=== PATIENT | male | born 1980 | race Caucasian/White ===

== ENCOUNTER 2016-04-25 13:42 | Emergency (ER) | payer MEDICARE, MEDICAID ==
[2016-04-25] MEDS ORDERED: oxyCOD/ACETAMIN 5 MG/325 MG TABLET PO STA (14:35)
[2016-04-25] MEDS ORDERED: CLINDAMYCIN 150 MG CAPSULE PO STA (14:35)
[2016-04-25] MEDS ORDERED: CLINDAMYCIN 150 MG CAPSULE PO ONE (14:40)
[2016-04-25] MEDS ORDERED: oxyCOD/ACETAMIN 5 MG/325 MG TABLET PO ONE (14:40)
== END 2016-04-25 14:46 | disposition home or self-care (01) ==
DX: K04.7 Periapical abscess without sinus (principal); K02.9 Dental caries, unspecified; F17.200 Nicotine dependence, unspecified, uncomplicated
CPT/HCPCS: 99283; A9270

== ENCOUNTER 2016-07-24 12:35 | Emergency (ER) | payer MEDICAID, MEDICARE ==
[2016-07-24] MEDS ORDERED: oxyCOD/ACETAMIN 5 MG/325 MG TABLET PO STA (12:43)
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
[2016-07-24] MEDS ORDERED: oxyCOD/ACETAMIN 5 MG/325 MG TABLET PO ONE (13:00)
--- NOTE | 2016-07-24 13:18 | XRAY Preliminary Report ---
Exam: XR Elbow 3 View LT IMPRESSION: Chronic appearing spurring of the elbow with hypertrophy of the coronoid process of the p roximal ulna. No acute fracture or subluxation. [facility] SITE ID: [id number]
--- NOTE | 2016-07-24 13:21 | XRAY Report ---
EXAM: LEFT ELBOW RADIOGRAPHY EXAM DATE: 07/24/2016 01:00 PM. CLINICAL HISTORY: Elbow inj. unable to straighten arm. COMPARISON: 09/23/2013. TECHNIQUE: 4 views. FINDINGS: Bones: There is chronic appearing hypertrophy and spurring of the coronoid process of the proximal ul na. There is mild to moderate spurring of the radial head. No cortical step off or acute fracture. Joints: No displaced posterior fat pad. Joint space appears preserved. Soft Tissues: Otherwise unremarkable. IMPRESSION: Chronic appearing spurring of the elbow with hypertrophy of the coronoid process of the p roximal ulna. No acute fracture or subluxation. [facility] Referring Provider Line: [phone] SITE ID: [id number]
[2016-07-24 13:34] VITALS: BP 117/70
== END 2016-07-24 13:34 | disposition home or self-care (01) ==
LOC: ED 12:35
DX: S53.402A Unspecified sprain of left elbow, initial encounter (principal); X50.0XXA Overexertion from strenuous movement or load, initial encounter; Y93.83 Activity, rough housing and horseplay; R03.0 Elevated blood-pressure reading, without diagnosis of hypertension
CPT/HCPCS: 73080; 99283; A9270

== ENCOUNTER 2016-10-16 12:35 | Emergency (ER) | payer MEDICARE ==
[2016-10-16 12:45] VITALS: BP 118/78
[2016-10-16] MEDS ORDERED: DEXAMETHASONE 10 MG/ML VIAL PO STA (13:09)
[2016-10-16] MEDS ORDERED: DEXAMETHASONE 10 MG/ML VIAL ONE (13:12)
--- NOTE | 2016-10-16 13:12 | ED Physician Documentation ---
PD HPI HEENT - Stated complaint Stated Complaint: RT EAR & TOOTH PX - Chief complaint Chief Complaint: Heent - History obtained from History obtained from: Patient - History of Present Illness Timing - onset: How many days ago (2) Timing - duration: Days (2) Timing - details: Gradual onset, Still present Location: Right ear, Tooth Improves: Medication Worsens: Swalllowing Associated symptoms: Congestion, Headache, Cough Similar symptoms before: Diagnosis (ear infection and a bad tooth) Recently seen: Not recently seen - Additional information Additional information: 36 y/o male has begun to have pain in a right tooth #6 and and this extends into the right zygomatic arch and to the right ear. He has a sensation of air coming out of the ear but not drainage. Review of Systems Constitutional: reports: Chills, Myalgias, Fatigue. denies: Fever Eyes: denies: Decreased vision Ears: reports: Ear pain Nose: reports: Rhinorrhea / runny nose, Congestion Throat: reports: Dental pain / toothache Cardiac: denies: Chest pain / pressure, Palpitations Respiratory: reports: Cough. denies: Dyspnea GI: denies: Abdominal Pain, Nausea, Vomiting : denies: Dysuria, Frequency PD PAST MEDICAL HISTORY - Past Medical History Past Medical History: Yes Cardiovascular: None Respiratory: None Neuro: None Endocrine/Autoimmune: None GI: None : None HEENT: None Psych: Depression Musculoskeletal: None Derm: None - Past Surgical History Past Surgical History: Yes Ortho: Other - Present Medications Home Medications: Ambulatory Orders Medication Instructions Recorded Confirmed Citalopram [CeleXA] 20 mg PO DAILY 01/30/16 10/16/16 Clindamycin HCl 300 mg PO QID #28 capsule 10/16/16 Oxycodone HCl/Acetaminophen 1 each PO Q6HR PRN #15 tablet 10/16/16 [Oxycodone-Acetaminophen 5-325] - Allergies Allergies/Adverse Reactions: Allergies Allergy/AdvReac Type Severity Reaction Status Date / Time amoxicillin [Amoxicillin] Allergy Severe Hives Verified 10/16/16 12:45 hydrocodone [Hydrocodone] AdvReac Headache Verified 10/16/16 12:45 - Social History Does the pt smoke?: Yes Smoking Status: Current every day smoker Does the pt drink ETOH?: No Does the pt have substance abuse?: No - Immunizations Immunizations are current?: Yes - POLST Patient has POLST: No PD ED PE NORMAL - Vitals Vital signs reviewed: Yes (normal ) - General General: Alert and oriented X 3, Well developed/nourished, Other (The patient appears to be in pain and moves slowly ) - HEENT HEENT: Atraumatic, PERRL, EOMI, Other (The right TM is mildly inflamed along the umbo and in the basement posteriorly. I am not able to see the anterior portion of the TM but the TM that is visible shows no evidence of rupture. ) - Neck Neck: Supple, no meningeal sign, No bony TTP - Cardiac Cardiac: RRR, No murmur - Respiratory Respiratory: No respiratory distress, Clear bilaterally - Abdomen Abdomen: Soft, Non tender - Derm Derm: Normal color, Warm and dry, No rash - Extremities Extremities: No deformity, No edema - Neuro Neuro: No motor deficit, No sensory deficit - Psych Psych: Normal mood, Normal affect PD ED PE EXPANDED - HEENT HEENT Visual: 1 - swelling, tenderness (tooth is missing) Results - Vitals Vitals: Vital Signs - 24 hr 10/16/16 12:43 Temperature 36.8 C Heart Rate 88 Respiratory 16 Rate Blood Pressure 118/78 O2 Saturation 100 Oxygen O2 Source Room air PD MEDICAL DECISION MAKING - ED course Complexity details: considered differential, d/w patient ED course: 36 y/o male with a bad tooth also has inflammation in the right ear. He is given decadron in the ED and we will put him on some clinda with this and use percocet for pain control. Departure - Departure Disposition: 01 Home, Self Care Clinical Impression: Dental abscess Otitis media Qualifiers: Otitis media type: suppurative Laterality: right Chronicity: acute Recurrence: not specified as recurrent Spontaneous tympanic membrane rupture: without spontaneous rupture Qualified Code(s): H66.001 - Acute suppurative otitis media without spontaneous rupture of ear drum, right ear Condition: Stable Instructions: ED Otitis Media Acute Adult, ED Tooth Pain Follow-Up: Tima Durant MD [Primary Care Provider] - Prescriptions: Oxycodone HCl/Acetaminophen [Oxycodone-Acetaminophen 5-325] 1 each PO Q6HR PRN # 15 tablet PRN Reason: Pain Clindamycin HCl 300 mg PO QID #28 capsule
[2016-10-16] MEDS ORDERED: CHERRY SYRUP 10 ML UDC PO ONE (13:13)
== END 2016-10-16 13:36 | disposition home or self-care (01) ==
LOC: ED 12:35
DX: K04.7 Periapical abscess without sinus (principal); H66.001 Acute suppurative otitis media without spontaneous rupture of ear drum, right ear; F17.200 Nicotine dependence, unspecified, uncomplicated
CPT/HCPCS: 99283; 99284; A9270

== ENCOUNTER 2016-11-14 08:48 | Emergency (ER) | payer MEDICARE ==
[2016-11-14 08:53] VITALS: BP 117/71
--- NOTE | 2016-11-14 09:21 | ED Physician Documentation ---
PD HPI UPPER EXT INJURY - Stated complaint Stated Complaint: LEFT HAND PX - Chief complaint Chief Complaint: Ext Problem - History obtained from History obtained from: Patient - History of Present Illness Location: Left, Wrist, Hand Type of injury: No: Fall, Blunt / blow, Puncture wound Where injury occurred: Home Timing - onset: How many days ago (2) Timing - duration: Days (2) Timing - details: Gradual onset, Still present (no noted trauma; wrist and hand started hurting and have gotten worse.) Improved by: Rest. No: Meds (tried Ibuprofen) Worsened by: Moving, Palpating Associated symptoms: No: Weakness, Numbness, Swelling Similar symptoms before: Has not had sx before Recently seen: Not recently seen Review of Systems Constitutional: denies: Fever, Chills Nose: denies: Rhinorrhea / runny nose, Congestion Throat: denies: Sore throat Respiratory: denies: Cough GI: denies: Nausea, Vomiting, Diarrhea Skin: denies: Rash, Lesions, Abrasion (s), Laceration (s) Neurologic: denies: Focal weakness, Numbness PD PAST MEDICAL HISTORY - Past Medical History Cardiovascular: None Respiratory: None Neuro: None Endocrine/Autoimmune: None GI: None : None HEENT: None Psych: Depression Musculoskeletal: None Derm: None - Past Surgical History Past Surgical History: Yes Ortho: Other - Present Medications Home Medications: Ambulatory Orders Medication Instructions Recorded Confirmed Citalopram [CeleXA] 20 mg PO DAILY 01/30/16 11/14/16 Dexamethasone [Decadron] 4 mg PO DAILY #5 tablet 11/14/16 Naproxen 375 mg PO BID #20 tablet 11/14/16 Oxycodone HCl/Acetaminophen 1 each PO Q6H PRN #15 tablet 11/14/16 [Percocet 5-325 mg Tablet] - Allergies Allergies/Adverse Reactions: Allergies Allergy/AdvReac Type Severity Reaction Status Date / Time amoxicillin [Amoxicillin] Allergy Severe Hives Verified 10/16/16 12:45 hydrocodone [Hydrocodone] AdvReac Headache Verified 10/16/16 12:45 - Social History Does the pt smoke?: Yes Smoking Status: Current every day smoker Does the pt drink ETOH?: No Does the pt have substance abuse?: No Substance Use and Type: Marijuana - Immunizations Immunizations are current?: Yes - POLST Patient has POLST: No PD ED PE NORMAL - Vitals Vital signs reviewed: Yes - General General: Alert and oriented X 3, Well developed/nourished, Other (anxious and appears in much pain. Holding the left hand and wrist very tensely, with fingers partly flexed closed. Normal color and cap refill. No edema in fingers. Normal sensation to touch and sharp. Wrist with some tenderness dorsally. Forearm without swelling, redness, nor tenderness. Wrist movement hurts. ) - Derm Derm: Normal color, Warm and dry, No rash - Extremities Extremities: No deformity, No edema - Neuro Neuro: No motor deficit, No sensory deficit - Psych Psych: Normal mood. No: Normal affect (slightly anxious.) Results - Vitals Vitals: Vital Signs - 24 hr 11/14/16 08:51 Temperature 36.0 C L Heart Rate 89 Respiratory 16 Rate Blood Pressure 117/71 O2 Saturation 100 Oxygen O2 Source Room air - Rads (name of study) left hand Radiology: Prelim report reviewed, EMP read contemporaneously (no fractures) PD MEDICAL DECISION MAKING - ED course Complexity details: considered differential (no mechanism for significant injury and no repetitive use recent. Pain seems excess for mechanism and without findings, such as swelling, crepitance of tendons/etc. He feels better with wrist splint. Presume tendonitis. Has good color, cap refill and no edema in fingers, so does not seem compartment pressure issue. ), d/w patient Departure - Departure Disposition: 01 Home, Self Care Clinical Impression: Left hand pain, Left hand tendonitis Condition: Stable Record reviewed to determine appropriate education?: Yes Follow-Up: Tima Durant MD [Primary Care Provider] - Prescriptions: Dexamethasone [Decadron] 4 mg PO DAILY #5 tablet Naproxen 375 mg PO BID #20 tablet Oxycodone HCl/Acetaminophen [Percocet 5-325 mg Tablet] 1 each PO Q6H PRN #15 tablet PRN Reason: Pain Comments: Wrist splint to help wrist/hand pain anyway and then less use of the hand to help with fingers hurting. Naproxen twice daily for a week, and Decadron daily for 5 days both for inflammation. Add Tylenol or Percocet for pain as needed. Recheck if not improved over the next 3-5 days. Discharge Date/Time: 11/14/16 10:00
--- NOTE | 2016-11-14 09:34 | XRAY Report ---
EXAM: LEFT HAND RADIOGRAPHY EXAM DATE: 11/14/2016 09:15 AM. CLINICAL HISTORY: Pain in left hand, denies trauma. COMPARISON: None. TECHNIQUE: 3 views. FINDINGS: Bones: No acute fracture or bony lesion. No bony erosions. Joints: Normal. No subluxations. Soft Tissues: No radiopaque foreign bodies. IMPRESSION: 1. No osseous abnormalities. [facility] Referring Provider Line: [phone] SITE ID: [id number]
[2016-11-14] MEDS ORDERED: DEXAMETHASONE 10 MG/ML VIAL PO STA (09:37)
[2016-11-14] MEDS ORDERED: oxyCOD/ACETAMIN 5 MG/325 MG TABLET PO STA (09:37)
[2016-11-14] MEDS ORDERED: oxyCOD/ACETAMIN 5 MG/325 MG TABLET PO ONE (09:39)
[2016-11-14] MEDS ORDERED: CHERRY SYRUP 10 ML UDC PO ONE (09:39)
[2016-11-14] MEDS ORDERED: DEXAMETHASONE 10 MG/ML VIAL ONE (09:40)
== END 2016-11-14 10:00 | disposition home or self-care (01) ==
LOC: ED 08:48
DX: M77.9 Enthesopathy, unspecified (principal); M25.532 Pain in left wrist; F17.200 Nicotine dependence, unspecified, uncomplicated
CPT/HCPCS: 73130; 99283; A9270

== ENCOUNTER 2017-01-18 13:19 | Emergency (ER) | payer MEDICARE ==
--- NOTE | 2017-01-18 13:54 | XRAY Preliminary Report ---
Exam: XR Finger(s) LT IMPRESSION: Mild soft tissue swelling. No acute fracture or dislocation identified. [facility] SITE ID: [id number]
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
[2017-01-18] MEDS ORDERED: oxyCOD/ACETAMIN 5 MG/325 MG TABLET PO STA (15:32)
[2017-01-18] MEDS ORDERED: NAPROXEN 250 MG TABLET PO STA (15:32)
[2017-01-18] MEDS ORDERED: NAPROXEN 250 MG TABLET PO ONE (15:38)
[2017-01-18] MEDS ORDERED: oxyCOD/ACETAMIN 5 MG/325 MG TABLET PO ONE (15:39)
[2017-01-18 15:51] VITALS: BP 123/82
== END 2017-01-18 15:48 | disposition home or self-care (01) ==
LOC: ED 13:19
DX: S63.635A Sprain of interphalangeal joint of left ring finger, initial encounter (principal); S63.259A Unspecified dislocation of unspecified finger, initial encounter; X50.1XXA Overexertion from prolonged static or awkward postures, initial encounter; Y93.75 Activity, martial arts
CPT/HCPCS: 73140; 99283; A9270

== ENCOUNTER 2017-01-30 13:23 | Emergency (ER) | payer MEDICARE ==
[2017-01-30 13:30] VITALS: BP 122/77
[2017-01-30] MEDS ORDERED: oxyCOD/ACETAMIN 5 MG/325 MG TABLET PO STA (13:56)
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
[2017-01-30] MEDS ORDERED: oxyCOD/ACETAMIN 5 MG/325 MG TABLET PO ONE (14:05)
--- NOTE | 2017-01-30 14:12 | XRAY Preliminary Report ---
Exam: XR Hand 3 View LT IMPRESSION: Normal hand radiography. [facility] SITE ID: [id number]
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
== END 2017-01-30 14:04 | disposition home or self-care (01) ==
LOC: ED 13:23
DX: S63.633A Sprain of interphalangeal joint of left middle finger, initial encounter (principal); S63.635A Sprain of interphalangeal joint of left ring finger, initial encounter; X50.1XXA Overexertion from prolonged static or awkward postures, initial encounter; F17.200 Nicotine dependence, unspecified, uncomplicated
CPT/HCPCS: 73130; 99283; A9270

== ENCOUNTER 2017-03-19 12:05 | Emergency (ER) | payer MEDICARE ==
[2017-03-19 14:15] VITALS: BP 131/80
--- NOTE | 2017-03-19 14:51 | ED Physician Documentation ---
History of Present Illness - Stated complaint Stated Complaint: TOOTH PAIN - Chief complaint Chief Complaint: Heent - History obtained from History obtained from: Patient (pt is here for concerns of tooth pain and infection. states that over the past couple days thae area where a tooth broke has been painful. has been taking NSAID's for this.) Review of Systems Constitutional: denies: Fever, Chills Ears: reports: Ear pain (right ear pain) Nose: denies: Congestion, Sinus pressure / pain Throat: reports: Dental pain / toothache. denies: Oral lesions / sores, Sore throat, Swollen tonsils Cardiac: denies: Chest pain / pressure Respiratory: denies: Cough GI: denies: Nausea, Vomiting Skin: denies: Rash, Lesions Musculoskeletal: denies: Neck pain PD PAST MEDICAL HISTORY - Past Medical History Cardiovascular: None Respiratory: None Neuro: None Endocrine/Autoimmune: None GI: None : None HEENT: None Psych: Depression Musculoskeletal: None Derm: None - Past Surgical History Past Surgical History: Yes Ortho: Other - Present Medications Home Medications: Ambulatory Orders Medication Instructions Recorded Confirmed Citalopram [CeleXA] 20 mg PO DAILY 01/30/16 01/30/17 Alprazolam [Alprazolam Odt] 1 mg PO DAILY PRN 01/18/17 01/30/17 Clindamycin HCl [Clindamycin 300MG 300 mg PO TID #30 capsule 03/19/17 CAP] HYDROcod/ACETAM 5/325 [[place] 5/325] 1 each PO Q6H #10 tablet 03/19/17 - Allergies Allergies/Adverse Reactions: Allergies Allergy/AdvReac Type Severity Reaction Status Date / Time amoxicillin [Amoxicillin] Allergy Severe Hives Verified 01/18/17 13:25 hydrocodone [Hydrocodone] AdvReac Headache Verified 01/18/17 13:25 tramadol AdvReac Headache Verified 01/18/17 13:54 - Social History Does the pt smoke?: Yes Smoking Status: Current every day smoker Does the pt drink ETOH?: No Does the pt have substance abuse?: No - Immunizations Immunizations are current?: Yes - POLST Patient has POLST: No PD ED PE NORMAL - Vitals Vital signs reviewed: Yes - General General: Alert and oriented X 3, Well developed/nourished - HEENT HEENT: Atraumatic, PERRL, Ears normal, Moist mucous membranes, Pharynx benign. No: Dentition benign (pt with multiple dental caries and missing right tooth 7) - Cardiac Cardiac: RRR, No murmur - Respiratory Respiratory: No respiratory distress Results - Vitals Vitals: Vital Signs - 24 hr 03/19/17 03/19/17 12:09 14:13 Temperature 36.4 C L 3.1 C L Heart Rate 84 107 H Respiratory 16 18 Rate Blood Pressure 124/60 131/80 H O2 Saturation 100 97 Oxygen O2 Source Room air PD MEDICAL DECISION MAKING - ED course Complexity details: d/w patient ED course: pt iwth missing right tooth #7 with dentin exposed. no signs of an abscess that can be drained. Ca hydroxide paste was placed over the area. will send home with abd and pain meds and he was instructed to followup with a dentist on tuesday . Departure - Departure Disposition: Home, Self Care Clinical Impression: Tooth avulsion, Dental caries Condition: Good Instructions: Dental Abscess, Decay Tooth Prescriptions: Clindamycin HCl [Clindamycin 300MG CAP] 300 mg PO TID #30 capsule HYDROcod/ACETAM 5/325 [[place] 5/325] 1 each PO Q6H #10 tablet Comments: You need to follow up with a dentist on tuesday. Take all of your medications as instructed.
== END 2017-03-19 15:07 | disposition home or self-care (01) ==
LOC: ED 12:05
DX: S03.2XXA Dislocation of tooth, initial encounter (principal); X58.XXXA Exposure to other specified factors, initial encounter; K02.9 Dental caries, unspecified; F17.200 Nicotine dependence, unspecified, uncomplicated
CPT/HCPCS: 99283

== ENCOUNTER 2017-04-28 13:58 | Emergency (ER) | payer MEDICARE ==
[2017-04-28 14:15] VITALS: BP 127/76
[2017-04-28] MEDS ORDERED: IBUPROFEN 400 MG TABLET PO STA (14:26)
--- NOTE | 2017-04-28 15:08 | ED Physician Documentation ---
History of Present Illness - Stated complaint Stated Complaint: LEFT HAND PX - Chief complaint Chief Complaint: Ext Problem - Additonal information Additional information: pt injured his 3rd and 4th PIP L hand in Jan seen in ED for same neg xrays felt to have possibly dislocated then relocated given mechanism of twisting still hurt Review of Systems Musculoskeletal: reports: Extremity pain PD PAST MEDICAL HISTORY - Past Medical History Cardiovascular: None Respiratory: None Neuro: None Endocrine/Autoimmune: None GI: None : None HEENT: None Psych: Depression Musculoskeletal: None Derm: None - Past Surgical History Past Surgical History: Yes Ortho: Other - Present Medications Home Medications: Ambulatory Orders Medication Instructions Recorded Confirmed Citalopram [CeleXA] 20 mg PO DAILY 01/30/16 04/28/17 Alprazolam [Alprazolam Odt] 1 mg PO DAILY PRN 01/18/17 04/28/17 Gluc Begum Dipo Ch/Chinedu Begum/C/Antolin 1 each PO DAILY PRN #30 capsule 04/28/17 [Glucosamine-Chondroitin Capsul] Indomethacin [Indocin] 25 mg PO BIDWM PRN #20 capsule 04/28/17 - Allergies Allergies/Adverse Reactions: Allergies Allergy/AdvReac Type Severity Reaction Status Date / Time amoxicillin [Amoxicillin] Allergy Severe Hives Verified 04/28/17 14:15 hydrocodone [Hydrocodone] AdvReac Headache Verified 04/28/17 14:15 tramadol AdvReac Headache Verified 04/28/17 14:15 - Social History Does the pt smoke?: Yes Smoking Status: Current every day smoker Does the pt drink ETOH?: No Does the pt have substance abuse?: No - Immunizations Immunizations are current?: Yes - POLST Patient has POLST: No PD ED PE NORMAL - Vitals Vital signs reviewed: Yes - Extremities Extremities: Other (L hand 3rd and 4th PIP are swollen and there is some palpable crepitus with ROM but no redness or warmth, nl cascade, MSV intact, able to fully flex and ext) Results - Vitals Vitals: Vital Signs - 24 hr 04/28/17 14:11 Temperature 37.4 C Heart Rate 89 Respiratory 16 Rate Blood Pressure 127/76 O2 Saturation 100 Oxygen O2 Source Room air - Rads (name of study) hand Radiology: See rad report (STS no fx dislocation or sublux) Departure - Departure Disposition: 01 Home, Self Care Clinical Impression: Finger pain, left Follow-Up: [facility] [Provider Group] Prescriptions: Gluc Begum Dipo Ch/Chinedu Begum/C/Antolin [Glucosamine-Chondroitin Capsul] 1 each PO DAILY PRN #30 capsule PRN Reason: Joint Pain Indomethacin [Indocin] 25 mg PO BIDWM PRN #20 capsule PRN Reason: Joint Pain Comments: I am concerned you may have developed some arthritis or chronic inflammation from your prior injury to the fingers. I would like you to try a course of a strong anti-inflammatory called indocin and also to try a joint supplement called glucosamine-chondroitin. If that does not help I have also referred you to orthpedics and you can call to make an appointment with them
--- NOTE | 2017-04-28 15:19 | XRAY Report ---
EXAM: LEFT HAND RADIOGRAPHY EXAM DATE: 04/28/2017 02:44 PM. CLINICAL HISTORY: Trauma, third and fourth PIP pain. COMPARISON: 01/30/2017. TECHNIQUE: 3 views. FINDINGS: Bones: No definite fracture or other bone lesion. Joints: Normal. No subluxations. Soft Tissues: Mild soft tissue swelling over third and fourth PIP joints. IMPRESSION: Soft tissue swelling. [facility] Referring Provider Line: [phone] SITE ID: [id number]
== END 2017-04-28 16:41 | disposition home or self-care (01) ==
LOC: ED 13:58
DX: M79.642 Pain in left hand (principal); F17.200 Nicotine dependence, unspecified, uncomplicated
CPT/HCPCS: 73130; 99283; A9270

== ENCOUNTER 2017-06-18 12:16 | Emergency (ER) | payer MEDICARE ==
[2017-06-18 12:27] VITALS: BP 110/90
[2017-06-18] MEDS ORDERED: oxyCOD/ACETAMIN 5 MG/325 MG TABLET PO STA (12:53)
--- NOTE | 2017-06-18 12:54 | ED Physician Documentation ---
PD HPI HEENT - Stated complaint Stated Complaint: R SIDE FACE/TOOTH PX - Chief complaint Chief Complaint: Heent - History obtained from History obtained from: Patient - History of Present Illness Timing - onset: Other (Eating chips last night and broke a tooth on the right maxilla, or molar. He has severe pain there. No facial swelling or fevers.) Review of Systems Constitutional: reports: Reviewed and negative Nose: reports: Reviewed and negative Throat: reports: Dental pain / toothache Cardiac: denies: Chest pain / pressure PD PAST MEDICAL HISTORY - Past Medical History Cardiovascular: None Respiratory: None Neuro: None Endocrine/Autoimmune: None GI: None : None HEENT: None Psych: Depression Musculoskeletal: None Derm: None - Past Surgical History Past Surgical History: Yes Ortho: Other - Present Medications Home Medications: Ambulatory Orders Medication Instructions Recorded Confirmed Clindamycin [Cleocin] 300 mg PO Q6H 10 Days capsule 06/18/17 Ibuprofen [Motrin] 800 mg PO Q8H PRN #30 tablet 06/18/17 Oxycodone HCl/Acetaminophen 1 - 2 tab PO Q4H PRN #7 tablet 06/18/17 [Percocet 5-325 mg Tablet] - Allergies Allergies/Adverse Reactions: Allergies Allergy/AdvReac Type Severity Reaction Status Date / Time amoxicillin [Amoxicillin] Allergy Severe Hives Verified 04/28/17 14:15 hydrocodone [Hydrocodone] AdvReac Headache Verified 04/28/17 14:15 tramadol AdvReac Headache Verified 04/28/17 14:15 - Social History Does the pt smoke?: Yes Smoking Status: Current every day smoker Does the pt drink ETOH?: No Does the pt have substance abuse?: No - Immunizations Immunizations are current?: Yes - POLST Patient has POLST: No PD ED PE NORMAL - Vitals Vital signs reviewed: Yes - General General: Alert and oriented X 3, No acute distress - HEENT HEENT: Other (Missing a fair number of teeth and a lot of fillings, there is a filling in the right maxillary molar that looks like it is broken and quite tender but no overlying facial swelling or trismus.) - Neck Neck: Supple, no meningeal sign, No bony TTP - Neuro Neuro: Alert and oriented X 3 - Psych Psych: Normal mood, Normal affect Results - Vitals Vitals: Vital Signs - 24 hr 06/18/17 12:25 Temperature 37.1 C Heart Rate 75 Respiratory 15 Rate Blood Pressure 110/90 H O2 Saturation 100 Oxygen O2 Source Room air Departure - Departure Disposition: 01 Home, Self Care Clinical Impression: Pain due to dental caries Condition: Good Record reviewed to determine appropriate education?: Yes Instructions: ED Tooth Pain Prescriptions: Clindamycin [Cleocin] 300 mg PO Q6H 10 Days capsule Ibuprofen [Motrin] 800 mg PO Q8H PRN #30 tablet PRN Reason: PAIN &/OR FEVER Oxycodone HCl/Acetaminophen [Percocet 5-325 mg Tablet] 1 - 2 tab PO Q4H PRN #7 tablet PRN Reason: Pain Comments: It is very important that she follow-up with a dentist. When it comes to dental problems like yours, the emergency department can only offer a short- term solution to your long-term problem. A couple of low cost options for dental care include: [facility] in [place], calls [phone] for an appointment Or [facility] in [place], call [phone] for an appointment. Do not drink or drive while taking narcotic pain medication. Note that many narcotic pain relievers also contain Tylenol/acetaminophen. Please ensure that your total dose of acetaminophen from all sources does not exceed 3 g (3000 mg) per day. You may get constipated while on this medication. Take a stool softener such as Colace twice a day while you are on it. Also add an [id number] laxative such as senna or MiraLAX on any day that you do not have a bowel movement. If you received a narcotic pain medication or sedative while in the emergency department, do not drive for the next 24 hours.
== END 2017-06-18 13:13 | disposition home or self-care (01) ==
LOC: ED 12:16
DX: K02.9 Dental caries, unspecified (principal); F17.200 Nicotine dependence, unspecified, uncomplicated
CPT/HCPCS: 99283; A9270

== ENCOUNTER 2017-09-02 12:29 | Emergency (ER) | payer MEDICARE ==
[2017-09-02 13:39] VITALS: BP 114/80
--- NOTE | 2017-09-02 13:39 | ED Physician Documentation ---
PD HPI HEENT - Stated complaint Stated Complaint: TOOTH PX - Chief complaint Chief Complaint: Heent - History obtained from History obtained from: Patient - History of Present Illness Timing - onset: Today Location: Tooth - Additional information Additional information: right upper toothache. He reports that a decayed molar broke this morning while he was eating, and he has had pain in the tooth since that time. He denies sore throat or difficulty swallowing. He denies facial swelling. Review of his medical record reveals an almost identical presentation here 3 months ago. Review of Systems Constitutional: denies: Fever Eyes: denies: Irritation Ears: denies: Ear pain Nose: denies: Congestion Throat: reports: Dental pain / toothache. denies: Sore throat Respiratory: denies: Dyspnea, Cough Skin: denies: Rash Neurologic: denies: Headache PD PAST MEDICAL HISTORY - Past Medical History Past Medical History: Yes Cardiovascular: None Respiratory: None Endocrine/Autoimmune: None GI: None : None HEENT: None Psych: Depression Musculoskeletal: None Derm: None - Past Surgical History Past Surgical History: Yes Ortho: Other - Present Medications Home Medications: Ambulatory Orders Medication Instructions Recorded Confirmed Clindamycin [Cleocin] 150 mg PO Q6H 7 Days #28 capsule 09/02/17 oxyCODONE/ACET 5/325 [Percocet 5 1 tab PO Q4-6H PRN #7 tablet 09/02/17 mg/325 mg] - Allergies Allergies/Adverse Reactions: Allergies Allergy/AdvReac Type Severity Reaction Status Date / Time amoxicillin [Amoxicillin] Allergy Severe Hives Verified 09/02/17 12:35 hydrocodone [Hydrocodone] AdvReac Headache Verified 09/02/17 12:35 tramadol AdvReac Headache Verified 09/02/17 12:35 - Social History Does the pt smoke?: Yes Smoking Status: Current every day smoker Does the pt drink ETOH?: No Does the pt have substance abuse?: No - Immunizations Immunizations are current?: Yes - POLST Patient has POLST: No PD ED PE NORMAL - Vitals Vital signs reviewed: Yes (normal) - General General: Alert and oriented X 3, Well developed/nourished - HEENT HEENT: Atraumatic, EOMI, Ears normal, Pharynx benign, Other (Several of his teeth have been previously extracted. Several of his remaining teeth have decay and fillings. There is tenderness to palpation of his one remaining right upper, which has a filling in it. There is no gingival swelling, and no facial swelling.) - Neck Neck: Supple, no meningeal sign, No adenopathy - Cardiac Cardiac: RRR - Respiratory Respiratory: No respiratory distress - Derm Derm: No rash - Neuro Neuro: Alert and oriented X 3, Normal speech Results - Vitals Vitals: Oxygen O2 Source Room air PD MEDICAL DECISION MAKING - ED course Complexity details: reviewed old records, considered differential, d/w patient ED course: The patient's presentation is significant for dental pain with numerous dental caries. There is no evidence of abscess. He is being discharged with prescription for clindamycin, and for Percocet, 7 tablets. I discussed with him the importance of following up with a dentist, as well as potentially worrisome signs or symptoms that should prompt reevaluation in the emergency department. Departure - Departure Disposition: 01 Home, Self Care Clinical Impression: Pain, dental Condition: Stable Instructions: ED Tooth Pain Follow-Up: Tima Durant MD [Primary Care Provider] - Prescriptions: Clindamycin [Cleocin] 150 mg PO Q6H 7 Days #28 capsule oxyCODONE/ACET 5/325 [Percocet 5 mg/325 mg] 1 tab PO Q4-6H PRN #7 tablet PRN Reason: Pain Comments: Take clindamycin 4 times daily as prescribed. You can use Percocet as prescribed if needed for pain. You can also use ibuprofen up to 800 mg 3 times daily for its anti-inflammatory effect. Follow up with a dentist as soon as possible. Call to schedule appointment. Return to the emergency department if you develop markedly increasing pain, facial swelling, or otherwise worsening symptoms. Discharge Date/Time: 09/02/17 13:46
== END 2017-09-02 13:46 | disposition home or self-care (01) ==
LOC: ED 12:29
DX: K08.89 Other specified disorders of teeth and supporting structures (principal); K02.9 Dental caries, unspecified; F17.200 Nicotine dependence, unspecified, uncomplicated
CPT/HCPCS: 99283

== ENCOUNTER 2017-10-07 09:06 | Emergency (ER) | payer MEDICARE ==
--- NOTE | 2017-10-07 10:03 | ED Physician Documentation ---
PD HPI LOWER EXT INJURY - Stated complaint Stated Complaint: R KNEE INJURY - Chief complaint Chief Complaint: General - History obtained from History obtained from: Patient - History of Present Illness PD HPI LOW EXT INJURY LOCATION: Right, Knee Type of injury: Blunt / blow Where injury occurred: Other (martial arts studio) Timing - onset: Last night Worsened by: Moving, Palpating Associated symptoms: No: Weakness, Numbness, Swelling Similar symptoms before: Has not had sx before - Additional information Additional information: The patient is a 37-year-old male who presents with right knee pain. He was performing martial arts last night when another student impacted the lateral aspect of his right knee, causing medial motion of the knee. He reports pain at the medial aspect of the knee since that time, with impaired ability to flex or extend the knee. He denies any other injuries. He denies any previous history of right knee injury. Review of Systems Constitutional: denies: Fever Skin: denies: Rash, Abrasion (s) Musculoskeletal: reports: Joint pain (Right knee). denies: Back pain, Joint swelling Neurologic: denies: Focal weakness, Numbness PD PAST MEDICAL HISTORY - Past Medical History Past Medical History: Yes Cardiovascular: None Respiratory: None Endocrine/Autoimmune: None GI: None : None HEENT: None Psych: Depression Musculoskeletal: None Derm: None - Past Surgical History Past Surgical History: Yes Ortho: Other - Present Medications Home Medications: Ambulatory Orders Medication Instructions Recorded Confirmed Citalopram [CeleXA] 20 mg PO DAILY 10/07/17 10/07/17 - Allergies Allergies/Adverse Reactions: Allergies Allergy/AdvReac Type Severity Reaction Status Date / Time amoxicillin [Amoxicillin] Allergy Severe Hives Verified 09/02/17 12:35 hydrocodone [Hydrocodone] AdvReac Headache Verified 09/02/17 12:35 tramadol AdvReac Headache Verified 10/07/17 09:14 - Social History Does the pt smoke?: Yes Smoking Status: Current every day smoker Does the pt drink ETOH?: No Does the pt have substance abuse?: No - Immunizations Immunizations are current?: Yes - POLST Patient has POLST: No PD ED PE NORMAL - Vitals Vital signs reviewed: Yes (normal) - General General: Alert and oriented X 3, Well developed/nourished, Other (Multiple tattoos.) - HEENT HEENT: Atraumatic - Respiratory Respiratory: No respiratory distress - Derm Derm: No rash - Extremities Extremities: No edema, No calf tenderness / cord, Other (There is tenderness to palpation along the medial joint line of the right knee. No tenderness along the lateral joint line or the popliteal fossa. He has limited range of motion of the knee secondary to pain. There is no warmth or erythema. There is no ligamentous instability detected. Distal neurovascular is intact.) - Neuro Neuro: Alert and oriented X 3, No motor deficit, No sensory deficit Results - Vitals Vitals: Vital Signs - 24 hr 10/07/17 10/07/17 09:11 11:03 Temperature 36.6 C 36.5 C Heart Rate 79 69 Respiratory 16 18 Rate Blood Pressure 112/86 H 116/71 O2 Saturation 100 96 Oxygen O2 Source Room air - Rads (name of study) Right knee Radiology: Prelim report reviewed, EMP read contemporaneously, See rad report ( No fracture, joint effusion, or acute findings.) PD MEDICAL DECISION MAKING - ED course Complexity details: reviewed results, re-evaluated patient, considered differential, d/w patient ED course: The patient's presentation is most consistent with strain versus tear of the medial collateral ligament of the right knee. His examination does not suggest ACL or PCL tear, and his x-ray reveals no acute osseous abnormality or joint effusion. Treatment in the emergency department included application of a knee immobilizer. I discussed with him the expected course of injury, symptomatic treatment and outpatient follow-up, as well as potentially worrisome signs or symptoms that should prompt reevaluation in the emergency department. - Sepsis Event Vital Signs: Vital Signs - 24 hr 10/07/17 10/07/17 09:11 11:03 Temperature 36.6 C 36.5 C Heart Rate 79 69 Respiratory 16 18 Rate Blood Pressure 112/86 H 116/71 O2 Saturation 100 96 Oxygen O2 Source Room air Departure - Departure Disposition: 01 Home, Self Care Clinical Impression: Medial collateral ligament sprain of knee Qualifiers: Encounter type: initial encounter Laterality: right Qualified Code(s): S83.411A - Sprain of medial collateral ligament of right knee, initial encounter Condition: Stable Instructions: ED Sprain Knee Collateral Ligaments Follow-Up: Tima Durant MD [Primary Care Provider] - Comments: Keep your right leg elevated as much the time as possible. Apply ice pack intermittently for the next 3 or 4 days. Use the knee immobilizer if it provides comfort. You can use ibuprofen, up to 800 mg 3 times daily for its anti-inflammatory effect. Follow up with your primary physician within 2 weeks. Call to schedule appointment. Return to the emergency department if you develop markedly increasing pain, swelling, or otherwise worsening symptoms. Discharge Date/Time: 10/07/17 11:04
--- NOTE | 2017-10-07 10:45 | XRAY Report ---
Procedure Date: 10/07/2017 Accession Number: [id number] / [id number] Procedure: XR - Knee 3 View RT CPT Code: FULL RESULT: EXAM: RIGHT KNEE RADIOGRAPHY EXAM DATE: 10/07/2017 09:54 AM. CLINICAL HISTORY: Right knee inversion injury wrestling yesterday. Medial knee pain. COMPARISON: 05/13/2007. TECHNIQUE: 4 views. FINDINGS: Bones: No fracture or bone lesion. Joints: No subluxation or joint effusion. Joint spaces are preserved. Soft Tissues: No significant findings identified. IMPRESSION: 1. No fracture, joint effusion, or acute findings identified. [facility]
[2017-10-07 11:04] VITALS: BP 116/71
== END 2017-10-07 11:04 | disposition home or self-care (01) ==
LOC: ED 09:06
DX: S83.411A Sprain of medial collateral ligament of right knee, initial encounter (principal); W50.0XXA Accidental hit or strike by another person, initial encounter; Y93.75 Activity, martial arts; Y92.89 Other specified places as the place of occurrence of the external cause; F17.200 Nicotine dependence, unspecified, uncomplicated
CPT/HCPCS: 29530; 99282; 99283

== ENCOUNTER 2017-11-02 11:51 | Outpatient (CLI) | payer OTHER, MEDICARE ==
--- NOTE | 2017-11-02 12:28 | XRAY Report ---
Procedure Date: 11/02/2017 Accession Number: [id number] / [id number] Procedure: XR - Elbow 3 View LT CPT Code: FULL RESULT: EXAM: Elbow 3 View LT DATE: 11/02/2017 12:03 PM CLINICAL HISTORY: ELBOW PAIN, HAND PAIN COMPARISON: 07/24/2016 TECHNIQUE: 3 views. FINDINGS: Bones: Normal. No fractures or bone lesions. Joints: Stable mild degenerative changes. No effusion. Soft Tissues: Normal. No soft tissue swelling. IMPRESSION: Stable mild degenerative changes. [facility]
--- NOTE | 2017-11-02 12:30 | XRAY Report ---
Procedure Date: 11/02/2017 Accession Number: [id number] / [id number] Procedure: XR - Hand 3 View LT CPT Code: FULL RESULT: EXAM: Hand 3 View LT DATE: 11/02/2017 12:03 PM CLINICAL HISTORY: ELBOW PAIN, HAND PAIN COMPARISON: 04/28/2017 TECHNIQUE: 3 views. FINDINGS: Bones: Normal. No fractures or bone lesions. Joints: Normal. No subluxations. Soft Tissues: Normal. No soft tissue swelling. IMPRESSION: Normal hand radiography. [facility]
== END 2017-11-02 11:52 | disposition home or self-care (01) ==
LOC: DI 11:51
DX: M19.022 Primary osteoarthritis, left elbow (principal); M25.641 Stiffness of right hand, not elsewhere classified

== ENCOUNTER 2017-12-08 21:42 | Emergency (ER) | payer MEDICARE, OTHER ==
[2017-12-08] MEDS ORDERED: oxyCODONE 5 MG TABLET PO STA (22:02)
[2017-12-08] MEDS ORDERED: oxyCODONE/ACET 5/325 Prepack 4 PO STA (22:02)
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
[2017-12-08 23:00] VITALS: BP 110/71
== END 2017-12-08 23:00 | disposition home or self-care (01) ==
LOC: ED 21:42
DX: S20.411A Abrasion of right back wall of thorax, initial encounter (principal); S20.412A Abrasion of left back wall of thorax, initial encounter; S20.229A Contusion of unspecified back wall of thorax, initial encounter; S20.211A Contusion of right front wall of thorax, initial encounter; W17.89XA Other fall from one level to another, initial encounter; W22.09XA Striking against other stationary object, initial encounter; Y92.812 Truck as the place of occurrence of the external cause
CPT/HCPCS: 71111; 72070; 99283; A9270

== ENCOUNTER 2018-01-21 12:18 | Emergency (ER) | payer MEDICARE, OTHER ==
[2018-01-21 12:28] VITALS: BP 122/65
[2018-01-21] MEDS ORDERED: DEXAMETHASONE 10 MG/ML VIAL PO STA (13:34)
--- NOTE | 2018-01-21 13:37 | ED Physician Documentation ---
PD HPI BACK PAIN - Stated complaint Stated Complaint: BACK PX - Chief complaint Chief Complaint: Back Pain - History obtained from History obtained from: Patient - History of Present Illness Timing - onset: How many days ago (2) Timing - duration: Days (2) Timing - details: Gradual onset, Still present Location: Mid, Lower Quality: Pain, Spasm, Sharp, Similar to prior episodes Associated symptoms: No: Fever, Weakness, Numbness, Incontinent of urine, Unable to urinate, Hematuria, Incontinent of stool Improves with: Rest, Position Worsened by: Movement, Lifting, Twisting, Palpation Contributing factors: Other (mowed the lawn 2 days ago) Similar symptoms before: Has not had sx before (lumbar contusion) Recently seen: Emergency Dept - Additional information Additional information: 38-year-old male who is on disability fell out of the back of a truck last month onto his back. He has had pain in this area of his back since and he was seen here in the emergency department and evaluated. He has continued to have pain was somewhat better and this week he went out to mow the lawn. He states that he did not seem to have too much pain when he did that but the pain is worse now over the last 2 days and now he is barely able to move. He states he has been getting into a hot bath for pain relief. Review of Systems Constitutional: denies: Fever Ears: denies: Ear pain Nose: denies: Congestion Throat: denies: Sore throat Cardiac: denies: Chest pain / pressure Respiratory: denies: Dyspnea, Cough GI: denies: Abdominal Pain, Nausea, Vomiting, Constipation, Diarrhea : denies: Dysuria, Frequency Musculoskeletal: reports: Back pain. denies: Neck pain, Extremity pain Neurologic: denies: Generalized weakness, Focal weakness, Numbness PD PAST MEDICAL HISTORY - Past Medical History Past Medical History: Yes Cardiovascular: None Respiratory: None Endocrine/Autoimmune: None GI: None : None HEENT: None Psych: Depression Musculoskeletal: None Derm: None - Past Surgical History Past Surgical History: Yes Ortho: Other - Present Medications Home Medications: Ambulatory Orders Medication Instructions Recorded Confirmed Citalopram [CeleXA] 20 mg PO DAILY 10/07/17 12/08/17 ALPRAZolam [Alprazolam] 0.5 mg PO ONCE PRN 01/21/18 01/21/18 Cyclobenzaprine [Flexeril] 10 mg PO TID PRN #20 tablet 01/21/18 oxyCODONE/ACET 5/325 [Percocet 5 1 - 2 each PO Q6H PRN #15 tablet 01/21/18 mg/325 mg] - Allergies Allergies/Adverse Reactions: Allergies Allergy/AdvReac Type Severity Reaction Status Date / Time amoxicillin [Amoxicillin] Allergy Severe Hives Verified 01/21/18 12:28 hydrocodone [Hydrocodone] AdvReac Headache Verified 01/21/18 12:28 tramadol AdvReac Headache Verified 01/21/18 12:28 - Social History Does the pt smoke?: Yes Smoking Status: Current every day smoker Does the pt drink ETOH?: No Does the pt have substance abuse?: No - Immunizations Immunizations are current?: Yes - POLST Patient has POLST: No PD ED PE NORMAL - Vitals Vital signs reviewed: Yes (normal ) - General General: Alert and oriented X 3, Well developed/nourished, Other (moves slowly and appears to be in pain ) - HEENT HEENT: Atraumatic, PERRL, EOMI - Neck Neck: Supple, no meningeal sign, No bony TTP - Cardiac Cardiac: RRR, No murmur - Respiratory Respiratory: No respiratory distress, Clear bilaterally - Back Back: No CVA TTP, No spinal TTP, Other (There is dense paraspinous muscle spasm along the spine from the mid lumbar to the mid thoracic spine. 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 He is administered dexamethasone 10 mg orally and we will place him back on some pain medication and muscle relaxant. I have indicated the patient he should avoid using the heating pack. - Sepsis Event Vital Signs: Vital Signs - 24 hr 01/21/18 12:26 Temperature 37 C Heart Rate 94 Respiratory 19 Rate Blood Pressure 122/65 O2 Saturation 98 Oxygen O2 Source Room air Departure - Departure Disposition: 01 Home, Self Care Clinical Impression: Spasm of back muscles Condition: Stable Instructions: ED Spasm Back No Trauma Follow-Up: Tima Durant MD [Primary Care Provider] - Prescriptions: Cyclobenzaprine [Flexeril] 10 mg PO TID PRN #20 tablet PRN Reason: Spasms oxyCODONE/ACET 5/325 [Percocet 5 mg/325 mg] 1 - 2 each PO Q6H PRN #15 tablet PRN Reason: Pain
[2018-01-21] MEDS ORDERED: CHERRY SYRUP 10 ML UDC PO ONE (13:38)
== END 2018-01-21 13:56 | disposition home or self-care (01) ==
LOC: ED 12:18
DX: M62.830 Muscle spasm of back (principal); F17.200 Nicotine dependence, unspecified, uncomplicated
CPT/HCPCS: 99283; A9270

== ENCOUNTER 2018-01-25 11:11 | Emergency (ER) | payer MEDICARE ==
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
[2018-01-25] MEDS ORDERED: oxyCODONE 5 MG TABLET PO STA (12:28)
[2018-01-25] MEDS ORDERED: NAPROXEN 250 MG TABLET PO STA (12:28)
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
[2018-01-25 13:46] VITALS: BP 116/61
== END 2018-01-25 13:57 | disposition home or self-care (01) ==
LOC: ED 11:11
DX: S16.1XXA Strain of muscle, fascia and tendon at neck level, initial encounter (principal); S51.822A Laceration with foreign body of left forearm, initial encounter; V59.9XXA Occupant (driver) (passenger) of pick-up truck or van injured in unspecified traffic accident, initial encounter; F17.200 Nicotine dependence, unspecified, uncomplicated
CPT/HCPCS: 73090; 99283; A9270

== ENCOUNTER 2018-07-18 12:40 | Emergency (ER) | payer MEDICARE ==
[2018-07-18] MEDS ORDERED: oxyCODONE 5 MG TABLET PO STA (16:05)
--- NOTE | 2018-07-18 16:08 | ED Physician Documentation ---
PD HPI HEENT - Stated complaint Stated Complaint: R EAR PAIN - Chief complaint Chief Complaint: Heent - History obtained from History obtained from: Patient - History of Present Illness Timing - onset: How many days ago (5) Timing - duration: Days (5) Timing - details: Gradual onset, Still present Location: Right ear, Tooth Improves: Medication Worsens: Everything Associated symptoms: Headache. No: Fever, Congestion, Cough Similar symptoms before: Diagnosis (bad tooth) Recently seen: Not recently seen - Additional information Additional information: 38-year-old male with poor dentition is come into the emergency department today with a broken right upper molar that has begin to cause him severe pain to his whole right face. He feels the pain into his ear and behind his eye up into his forehead and his entire jaw. He has vomited twice because of the severity of the pain. He has sensitivity to hot and cold and anything that touches the broken area hurts extremely Review of Systems Constitutional: denies: Fever Eyes: denies: Decreased vision Ears: reports: Ear pain Nose: reports: Congestion. denies: Rhinorrhea / runny nose Throat: reports: Dental pain / toothache Cardiac: denies: Chest pain / pressure Respiratory: denies: Dyspnea, Cough GI: reports: Vomiting PD PAST MEDICAL HISTORY - Past Medical History Past Medical History: Yes Cardiovascular: None Respiratory: None Neuro: None Endocrine/Autoimmune: None GI: None : None HEENT: None Psych: Depression Musculoskeletal: None Derm: None - Past Surgical History Past Surgical History: Yes Ortho: Other - Present Medications Home Medications: Ambulatory Orders Medication Instructions Recorded Confirmed Citalopram [CeleXA] 20 mg PO DAILY 10/07/17 07/18/18 Amoxicillin 875 mg PO BID #14 tablet 07/18/18 Oxycodone HCl/Acetaminophen 1 - 2 each PO Q6H PRN #14 tablet 07/18/18 [Percocet 5-325 mg Tablet] - Allergies Allergies/Adverse Reactions: Allergies Allergy/AdvReac Type Severity Reaction Status Date / Time amoxicillin [Amoxicillin] Allergy Severe Hives Verified 07/18/18 15:48 hydrocodone [Hydrocodone] AdvReac Headache Verified 07/18/18 15:48 tramadol AdvReac Headache Verified 07/18/18 15:48 - Social History Does the pt smoke?: No Smoking Status: Former smoker Does the pt drink ETOH?: No Does the pt have substance abuse?: No - Immunizations Immunizations are current?: Yes - POLST Patient has POLST: No PD ED PE NORMAL - Vitals Vital signs reviewed: Yes (hypertensive ) - General General: Alert and oriented X 3, Well developed/nourished, Other (appears to be in pain with tears, senior chemist tone and flat affect. ) - HEENT HEENT: Atraumatic, PERRL, EOMI, Ears normal, Other (there are multiple teeth missing and the most posterior molar on the right upper is broken in the back and has a hole in it that is tender and is not draining. 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 It is placed over the defect in the tooth and the patient is administered oxycodone [address] will [address] him on some amoxicillin and he states that he is able to take the amoxicillin due to his penicillin that he is allergic to. Departure - Departure Disposition: 01 Home, Self Care Clinical Impression: Pain, dental Condition: Stable Instructions: ED Tooth Pain Follow-Up: Tima Durant MD [Primary Care Provider] - Prescriptions: Amoxicillin 875 mg PO BID #14 tablet Oxycodone HCl/Acetaminophen [Percocet 5-325 mg Tablet] 1 - 2 each PO Q6H PRN #14 tablet PRN Reason: pain
[2018-07-18 16:16] VITALS: BP 117/82
== END 2018-07-18 16:16 | disposition home or self-care (01) ==
LOC: ED 12:40
DX: S02.5XXA Fracture of tooth (traumatic), initial encounter for closed fracture (principal); X58.XXXA Exposure to other specified factors, initial encounter; K08.89 Other specified disorders of teeth and supporting structures; Z87.891 Personal history of nicotine dependence
CPT/HCPCS: 99283; A9270

== ENCOUNTER 2018-10-06 10:24 | Emergency (ER) | payer MEDICARE ==
[2018-10-06 11:21] VITALS: BP 119/76
--- NOTE | 2018-10-06 12:20 | ED Physician Documentation ---
PD HPI HEENT - Stated complaint Stated Complaint: MOUTH PAIN - Chief complaint Chief Complaint: Heent - History obtained from History obtained from: Patient - History of Present Illness Timing - onset: How many days ago (several days) Timing - duration: Days (several) Timing - details: Gradual onset Pain level max: 8 Pain level now: 7 Location: Tooth Review of Systems Constitutional: denies: Fever, Chills GI: denies: Vomiting, Diarrhea PD PAST MEDICAL HISTORY - Past Medical History Cardiovascular: None Respiratory: None Neuro: None Endocrine/Autoimmune: None GI: None : None HEENT: None Psych: Depression Musculoskeletal: None Derm: None - Past Surgical History Past Surgical History: Yes Ortho: Other - Present Medications Home Medications: Ambulatory Orders Medication Instructions Recorded Confirmed Citalopram [CeleXA] 20 mg PO DAILY 10/07/17 07/18/18 Amoxicillin 875 mg PO BID #14 tablet 07/18/18 Oxycodone HCl/Acetaminophen 1 - 2 each PO Q6H PRN #14 tablet 07/18/18 [Percocet 5-325 mg Tablet] Clindamycin HCl [Clindamycin 300MG 300 mg PO Q6H #40 capsule 10/06/18 CAP] Oxycodone HCl/Acetaminophen 1 - 2 each PO Q6H PRN #8 tablet 10/06/18 [Percocet 5-325 mg Tablet] - Allergies Allergies/Adverse Reactions: Allergies Allergy/AdvReac Type Severity Reaction Status Date / Time amoxicillin [Amoxicillin] Allergy Severe Hives Verified 07/18/18 15:48 Penicillins Allergy Unknown Verified 10/06/18 11:21 hydrocodone [Hydrocodone] AdvReac Headache Verified 07/18/18 15:48 tramadol AdvReac Headache Verified 07/18/18 15:48 - Social History Does the pt smoke?: No Smoking Status: Former smoker Does the pt drink ETOH?: No Does the pt have substance abuse?: No - Immunizations Immunizations are current?: Yes - POLST Patient has POLST: No PD ED PE NORMAL - Vitals Vital signs reviewed: Yes - General General: Alert and oriented X 3, No acute distress - HEENT HEENT: PERRL, Ears normal, Moist mucous membranes, Other (poor dentition throughout. no gingival swelling or tenderness. ) - Neck Neck: Supple, no meningeal sign - Cardiac Cardiac: RRR - Respiratory Respiratory: No respiratory distress, Clear bilaterally - Derm Derm: Warm and dry - Neuro Neuro: Alert and oriented X 3 - Psych Psych: Normal mood, Normal affect Results - Vitals Vitals: Vital Signs - 24 hr 10/06/18 11:19 Temperature 36.8 C Heart Rate 86 Respiratory 18 Rate Blood Pressure 119/76 O2 Saturation 100 Oxygen O2 Source Room air PD MEDICAL DECISION MAKING - ED course Complexity details: reviewed results, re-evaluated patient, considered differential, d/w patient ED course: 38-year-old male with poor dentition presents with dental pain. Saw the dentist this morning and is scheduled for a root canal vs pulling the tooth in November. Continued pain today. Not placed on antibiotics. Will place on clindamycin as he is Allergic to amoxicillin and will write a small prescription for pain medication. Patient is well-appearing, nontoxic. Afebrile. No airway impingement. Normal phonation. No trismus. Patient counseled regarding signs and symptoms for which I believe and urgent re-evaluation would be necessary. Patient with good understanding of and agreement to plan and is comfortable going home at this time This document was made in part using voice recognition software. While efforts are made to proofread this document, sound alike and grammatical errors may occur. KATALINA and MOHIT reviewed. Departure - Departure Disposition: 01 Home, Self Care Clinical Impression: Pain due to dental caries Condition: Good Instructions: ED Cavity Dental Follow-Up: Tima Durant MD [Primary Care Provider] - Within 3 Days Prescriptions: Clindamycin HCl [Clindamycin 300MG CAP] 300 mg PO Q6H #40 capsule Oxycodone HCl/Acetaminophen [Percocet 5-325 mg Tablet] 1 - 2 each PO Q6H PRN #8 tablet PRN Reason: pain Comments: Return if you worsen. Take all antibiotics until gone. You need to follow up with a dentist for further care.
== END 2018-10-06 12:24 | disposition home or self-care (01) ==
LOC: ED 10:24
DX: K02.9 Dental caries, unspecified (principal); Z88.0 Allergy status to penicillin; Z87.891 Personal history of nicotine dependence
CPT/HCPCS: 99283

== ENCOUNTER 2019-05-09 15:52 | Emergency (ER) | payer MEDICARE ==
--- NOTE | 2019-05-09 16:56 | ED Physician Documentation ---
PD HPI HEENT - Stated complaint Stated Complaint: TOOTH PX - Chief complaint Chief Complaint: Heent - History obtained from History obtained from: Patient - History of Present Illness Timing - onset: How many days ago (several) Timing - duration: Days Timing - details: Gradual onset, Still present Location: Tooth (left upper incisor at area of severely decayed tooth.) Improves: No: Medication (ibuprofen) Associated symptoms: No: Fever, Congestion, Facial swelling, Headache, Cough Similar symptoms before: Diagnosis (dental infections often due to marked anxiety about going to dentists, so does not get teeth taken care of/extracted.) Recently seen: Not recently seen Review of Systems Constitutional: denies: Fever, Chills, Myalgias Nose: denies: Rhinorrhea / runny nose, Congestion Throat: reports: Dental pain / toothache. denies: Sore throat Respiratory: denies: Cough Neurologic: denies: Focal weakness, Numbness PD PAST MEDICAL HISTORY - Past Medical History Cardiovascular: None Respiratory: None Neuro: None Endocrine/Autoimmune: None GI: None : None HEENT: None Psych: Depression Musculoskeletal: None Derm: None - Past Surgical History Past Surgical History: Yes Ortho: Other - Present Medications Home Medications: Ambulatory Orders Medication Instructions Recorded Confirmed Citalopram [CeleXA] 20 mg PO DAILY 10/07/17 07/18/18 Amoxicillin 875 mg PO BID #14 tablet 07/18/18 Oxycodone HCl/Acetaminophen 1 - 2 each PO Q6H PRN #14 tablet 07/18/18 [Percocet 5-325 mg Tablet] Clindamycin HCl [Clindamycin 300MG 300 mg PO Q6H #40 capsule 10/06/18 CAP] Oxycodone HCl/Acetaminophen 1 - 2 each PO Q6H PRN #8 tablet 10/06/18 [Percocet 5-325 mg Tablet] Clindamycin HCl [Clindamycin 300MG 300 mg PO TID #21 capsule 05/09/19 CAP] Naproxen 375 mg PO BID #15 tablet 05/09/19 Oxycodone HCl/Acetaminophen 1 each PO Q6H PRN #18 tablet 05/09/19 [Percocet 5-325 mg Tablet] - Allergies Allergies/Adverse Reactions: Allergies Allergy/AdvReac Type Severity Reaction Status Date / Time amoxicillin [Amoxicillin] Allergy Severe Hives Verified 05/09/19 16:00 Penicillins Allergy Unknown Verified 05/09/19 16:00 hydrocodone [Hydrocodone] AdvReac Headache Verified 05/09/19 16:00 tramadol AdvReac Headache Verified 05/09/19 16:00 - Social History Does the pt smoke?: No Smoking Status: Former smoker Does the pt drink ETOH?: No Does the pt have substance abuse?: No - Immunizations Immunizations are current?: Yes - POLST Patient has POLST: No Results - Vitals Vitals: Oxygen O2 Source Room air PD MEDICAL DECISION MAKING - ED course Complexity details: considered differential (very nervous/anxious about dental work, which of course means he will keep having dental problems and come to the ER. I talked with him about it, that he needs to be able to overcome his anxiety and get some dental work done. ), d/w patient Departure - Departure Disposition: Home, Self Care Clinical Impression: Infected dental caries Condition: Stable Record reviewed to determine appropriate education?: Yes Instructions: ED Tooth Pain [facility] Prescriptions: Clindamycin HCl [Clindamycin 300MG CAP] 300 mg PO TID #21 capsule Naproxen 375 mg PO BID #15 tablet Oxycodone HCl/Acetaminophen [Percocet 5-325 mg Tablet] 1 each PO Q6H PRN #18 tablet PRN Reason: pain Comments: You could use topical numbing to the gum area to help with some of the pain. It does look like some infection so clindamycin antibiotic as directed for a week. Naproxen anti-inflammatory as prescribed also for a week. Add Tylenol or oxycodone as needed for pain. The tooth in particular in your teeth generally need dental work to reduce future infections. At some point you just need to have the dentist extract some of the poor teeth. Discharge Date/Time: 05/09/19 17:18
[2019-05-09] MEDS ORDERED: CLINDAMYCIN 150 MG CAPSULE PO STA (17:08)
[2019-05-09] MEDS ORDERED: NAPROXEN 250 MG TABLET PO STA (17:10)
[2019-05-09] MEDS ORDERED: oxyCODONE 5 MG TABLET PO STA (17:10)
[2019-05-09 17:19] VITALS: BP 130/66
== END 2019-05-09 17:18 | disposition home or self-care (01) ==
LOC: ED 15:52
DX: K04.7 Periapical abscess without sinus (principal); K02.9 Dental caries, unspecified; Z87.891 Personal history of nicotine dependence
CPT/HCPCS: 99283; 99284; A9270

== ENCOUNTER 2019-06-30 10:15 | Emergency (ER) | payer MEDICARE ==
--- NOTE | 2019-06-30 10:50 | ED Physician Documentation ---
PD HPI HEENT - Stated complaint Stated Complaint: EAR PX - Chief complaint Chief Complaint: Heent - History obtained from History obtained from: Patient - History of Present Illness Timing - onset: How many days ago (2) Timing - duration: Days Timing - details: Gradual onset, Still present Location: Left ear Worsens: Other (touching) Associated symptoms: Congestion, Facial swelling, Headache. No: Fever, Rhinorrhea, Swollen nodes, Cough Similar symptoms before: Diagnosis (ear infection) Recently seen: Emergency Dept - Additional information Additional information: 39-year-old male was been seen recently in the emergency department for tooth pain has now developed pain in his left ear. He has pain to touch the area has had a little bit of drainage from break the end of the year canal. He has not had a cough he has not had muffled hearing he does have some nasal congestion but no postnasal drainage. Denies any sore throat he denies any problem with pain in his teeth today. He has severe pain in this year and any light touch causes pain as well. Review of Systems Constitutional: denies: Fever Eyes: denies: Decreased vision Ears: reports: Ear pain Nose: reports: Congestion. denies: Rhinorrhea / runny nose Throat: denies: Sore throat Cardiac: denies: Chest pain / pressure, Palpitations Respiratory: denies: Dyspnea, Cough GI: denies: Nausea, Vomiting PD PAST MEDICAL HISTORY - Past Medical History Cardiovascular: None Respiratory: None Neuro: None Endocrine/Autoimmune: None GI: None : None HEENT: None Psych: Depression Musculoskeletal: None Derm: None - Past Surgical History Past Surgical History: Yes Ortho: Other - Present Medications Home Medications: Ambulatory Orders Medication Instructions Recorded Confirmed Citalopram [CeleXA] 20 mg PO DAILY 10/07/17 07/18/18 ALPRAZolam [Alprazolam] 0.25 mg PO 06/30/19 Neomycin/Polymyx/Hc Otic Drops 4 drops LEFTEAR TID #1 bottle 06/30/19 [Cortisporin Ear Susp] Oxycodone HCl/Acetaminophen 1 - 2 each PO Q6H PRN #8 tablet 06/30/19 [Percocet 5-325 mg Tablet] - Allergies Allergies/Adverse Reactions: Allergies Allergy/AdvReac Type Severity Reaction Status Date / Time amoxicillin [Amoxicillin] Allergy Severe Hives Verified 06/30/19 10:37 Penicillins Allergy Unknown Verified 06/30/19 10:37 hydrocodone [Hydrocodone] AdvReac Headache Verified 06/30/19 10:37 tramadol AdvReac Headache Verified 06/30/19 10:37 - Social History Does the pt smoke?: No Smoking Status: Never smoker Does the pt drink ETOH?: No Does the pt have substance abuse?: No - Immunizations Immunizations are current?: Yes - POLST Patient has POLST: No PD ED PE NORMAL - Vitals Vital signs reviewed: Yes (Hypertensive marked) - General General: Alert and oriented X 3, Well developed/nourished, Other (39-year-old male clutching left side of his head appears to be in pain with hand tube winder tone and flattened affect.) - HEENT HEENT: Atraumatic, PERRL, EOMI, Pharynx benign, Other (Both TMs are normal in appearance with retained landmarks normal color the canal to the left side has some mild erythema and swelling near the opening and this area is entirely tender there is tenderness to push on the pinna or pull on the tragus and there is no significant drainage.) - Neck Neck: Supple, no meningeal sign, No bony TTP - Cardiac Cardiac: RRR, No murmur - Respiratory Respiratory: No respiratory distress, Clear bilaterally - Derm Derm: Normal color, Warm and dry - Extremities Extremities: No deformity, No edema, No calf tenderness / cord - Neuro Neuro: Alert and oriented X 3, nurse transplant 2-12 intact, No motor deficit, No sensory deficit, Normal speech Eye Opening: Spontaneous Motor: Obeys Commands Verbal: Oriented GCS Score: 15 - Psych Psych: Other (Mood is anxious the affect is blunted) Results - Vitals Vitals: Vital Signs - 24 hr 06/30/19 10:34 Temperature 36.7 C Heart Rate 94 Respiratory 20 Rate Blood Pressure 167/140 H O2 Saturation 95 Oxygen O2 Source Room air PD MEDICAL DECISION MAKING - ED course Complexity details: considered differential, d/w patient ED course: 39-year-old male with a left otitis externa appears to be in significant pain he does have significant hypertension associated with this. We will place the patient on a course of Cortisporin otic suspension and provide 1 days worth of pain medication. Departure - Departure Disposition: 01 Home, Self Care Clinical Impression: Otitis externa Qualifiers: Otitis externa type: unspecified type Chronicity: acute Laterality: left Qualified Code(s): H60.502 - Unspecified acute noninfective otitis externa, left ear Instructions: ED Otitis Externa Follow-Up: Tima Durant MD [Primary Care Provider] - Prescriptions: Neomycin/Polymyx/Hc Otic Drops [Cortisporin Ear Susp] 4 drops LEFTEAR TID #1 bottle Oxycodone HCl/Acetaminophen [Percocet 5-325 mg Tablet] 1 - 2 each PO Q6H PRN #8 tablet PRN Reason: pain Comments: Today in the Emergency Department your blood pressure was elevated. This can happen from the stress of the visit itself, from a current illness or c ircumstance or from uncontrolled hypertension. If you take blood pressure medications take your usual mediations, have your blood pressure re-checked in an appropriate setting and follow up any elevation with your primary care doctor.
[2019-06-30 11:02] VITALS: BP 124/78
== END 2019-06-30 11:02 | disposition home or self-care (01) ==
LOC: ED 10:15
DX: H60.502 Unspecified acute noninfective otitis externa, left ear (principal); R03.0 Elevated blood-pressure reading, without diagnosis of hypertension
CPT/HCPCS: 99282; 99284

== ENCOUNTER 2019-09-23 10:31 | Emergency (ER) | payer MEDICARE ==
[2019-09-23] MEDS ORDERED: ERYTHROMYCIN BASE DR 250 MG TABLET PO STA (10:39)
[2019-09-23] MEDS ORDERED: oxyCODONE 5 MG TABLET PO STA (10:39)
[2019-09-23 10:41] VITALS: BP 123/97
--- NOTE | 2019-09-23 10:42 | ED Physician Documentation ---
PD HPI HEENT - Stated complaint Stated Complaint: R EAR PX - Chief complaint Chief Complaint: Heent - History obtained from History obtained from: Patient (Several days worth of worsening severe right ear pain with a sensation of air coming from the ear when he blows his nose or sneezes. Also ongoing dental pain on that side. Mild hearing loss on the right. No fevers.) Review of Systems Constitutional: denies: Fever, Chills Nose: denies: Rhinorrhea / runny nose, Congestion Throat: denies: Sore throat Cardiac: denies: Chest pain / pressure, Palpitations Respiratory: denies: Dyspnea PD PAST MEDICAL HISTORY - Past Medical History Cardiovascular: None Respiratory: None Neuro: None Endocrine/Autoimmune: None GI: None : None HEENT: None Psych: Depression Musculoskeletal: None Derm: None - Past Surgical History Past Surgical History: Yes Ortho: Other - Present Medications Home Medications: Ambulatory Orders Medication Instructions Recorded Confirmed Citalopram [CeleXA] 20 mg PO DAILY 10/07/17 07/18/18 ALPRAZolam [Alprazolam] 0.25 mg PO 06/30/19 Neomycin/Polymyx/Hc Otic Drops 4 drops LEFTEAR TID #1 bottle 06/30/19 [Cortisporin Ear Susp] Oxycodone HCl/Acetaminophen 1 - 2 each PO Q6H PRN #8 tablet 06/30/19 [Percocet 5-325 mg Tablet] Erythromycin Base [Erythromycin] 500 mg PO TID #30 tablet. 09/23/19 Ofloxacin 5 drops RIGHTEAR BID #1 bot 09/23/19 Oxycodone HCl/Acetaminophen 1 - 2 each PO Q6H PRN #10 tablet 09/23/19 [Percocet 5-325 mg Tablet] - Allergies Allergies/Adverse Reactions: Allergies Allergy/AdvReac Type Severity Reaction Status Date / Time amoxicillin [Amoxicillin] Allergy Severe Hives Verified 09/23/19 10:40 Penicillins Allergy Hives Verified 09/23/19 10:40 hydrocodone [Hydrocodone] AdvReac Headache Verified 09/23/19 10:40 tramadol AdvReac Headache Verified 09/23/19 10:40 - Social History Does the pt smoke?: No Smoking Status: Never smoker Does the pt drink ETOH?: No Does the pt have substance abuse?: No - Immunizations Immunizations are current?: Yes - POLST Patient has POLST: No PD ED PE NORMAL - Vitals Vital signs reviewed: Yes - General General: Alert and oriented X 3, No acute distress - HEENT HEENT: Other (He does have what appears to be mild case of right otitis media with a small superior perforation, generally poor dentition without swelling, trismus, abscess obvious.) - Neuro Neuro: Alert and oriented X 3, Normal speech Results - Vitals Vitals: Vital Signs - 24 hr 09/23/19 10:37 Temperature 36.8 C Heart Rate 94 Respiratory 18 Rate Blood Pressure 123/97 H O2 Saturation 100 Oxygen O2 Source Room air Departure - Departure Disposition: Home, Self Care Clinical Impression: Dental caries ROM (right otitis media) Qualifiers: Otitis media type: suppurative Chronicity: acute Recurrence: recurrent Spontaneous tympanic membrane rupture: with spontaneous rupture Qualified Code(s): H66.014 - Acute suppurative otitis media with spontaneous rupture of ear drum, recurrent, right ear Condition: Good Record reviewed to determine appropriate education?: Yes Instructions: ED Otitis Media Acute Adult Prescriptions: Erythromycin Base [Erythromycin] 500 mg PO TID #30 tablet.dr Ofloxacin 5 drops RIGHTEAR BID #1 bot Oxycodone HCl/Acetaminophen [Percocet 5-325 mg Tablet] 1 - 2 each PO Q6H PRN #10 tablet PRN Reason: pain Comments: Patient to follow-up with your dentist as soon as possible. Also reasonable to follow-up with an [facility] door liner, the closest is in [place], phone number is [phone]. Return if worse.
== END 2019-09-23 10:48 | disposition home or self-care (01) ==
LOC: ED 10:31
DX: H66.014 Acute suppurative otitis media with spontaneous rupture of ear drum, recurrent, right ear (principal); K02.9 Dental caries, unspecified
CPT/HCPCS: 99283; A9270

== ENCOUNTER 2019-12-18 16:34 | Emergency (ER) | payer MEDICARE ==
[2019-12-18 16:50] VITALS: BP 143/58
--- NOTE | 2019-12-18 19:02 | ED Physician Documentation ---
History of Present Illness - Stated complaint Stated Complaint: RT SIDE DENTAL PAIN - Chief complaint Chief Complaint: Heent - Additonal information Additional information: 39-year-old male here with 1 week of right upper molar pain. He used a toothpick to help pick food at the teeth but then developed sudden pain and has had some swelling of the gums. He denies that the toothpick broke. 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 He has no fevers, no trismus, no tongue or buccal lesions. He has been using salt water and Orajel without relief. He is also reported using ibuprofen Review of Systems Constitutional: denies: Fever, Chills Ears: denies: Loss of hearing, Ear pain, Drainage/discharge Nose: denies: Rhinorrhea / runny nose, Congestion, Foreign Body Throat: reports: Dental pain / toothache. denies: Oral lesions / sores, Sore throat, Swollen tonsils, Swallowed foreign body Cardiac: denies: Chest pain / pressure, Palpitations Respiratory: denies: Dyspnea, Cough GI: denies: Abdominal Pain, Abdominal Swelling, Nausea, Vomiting PD PAST MEDICAL HISTORY - Past Medical History Cardiovascular: None Respiratory: None Neuro: None Endocrine/Autoimmune: None GI: None : None HEENT: None Psych: Depression Musculoskeletal: None Derm: None - Past Surgical History Past Surgical History: Yes Ortho: Other - Present Medications Home Medications: Ambulatory Orders Medication Instructions Recorded Confirmed Citalopram [CeleXA] 20 mg PO DAILY 10/07/17 07/18/18 ALPRAZolam [Alprazolam] 0.25 mg PO 06/30/19 Neomycin/Polymyx/Hc Otic Drops 4 drops LEFTEAR TID #1 bottle 06/30/19 [Cortisporin Ear Susp] Oxycodone HCl/Acetaminophen 1 - 2 each PO Q6H PRN #8 tablet 06/30/19 [Percocet 5-325 mg Tablet] Erythromycin Base [Erythromycin] 500 mg PO TID #30 tablet. 09/23/19 Ofloxacin 5 drops RIGHTEAR BID #1 bot 09/23/19 Oxycodone HCl/Acetaminophen 1 - 2 each PO Q6H PRN #10 tablet 09/23/19 [Percocet 5-325 mg Tablet] Clindamycin HCl [Clindamycin 300MG 300 mg PO Q6H #28 capsule 12/18/19 CAP] Hydrocodone/Acetaminophen [[place] 1 each PO BID PRN #10 tablet 12/18/19 5-325 Tablet] - Allergies Allergies/Adverse Reactions: Allergies Allergy/AdvReac Type Severity Reaction Status Date / Time amoxicillin [Amoxicillin] Allergy Severe Hives Verified 09/23/19 10:40 Penicillins Allergy Hives Verified 09/23/19 10:40 hydrocodone [Hydrocodone] AdvReac Headache Verified 09/23/19 10:40 tramadol AdvReac Headache Verified 09/23/19 10:40 - Social History Does the pt smoke?: No Smoking Status: Never smoker Does the pt drink ETOH?: No Does the pt have substance abuse?: No - Immunizations Immunizations are current?: Yes - POLST Patient has POLST: No PD ED PE NORMAL - General General: Alert and oriented X 3, No acute distress, Well developed/nourished - HEENT HEENT: PERRL, EOMI, Ears normal, Pharynx benign, Other (tooth #1 with dental decay and gum line swelling. no drainage. no trismus. normal phonation, normal swallow) - Neck Neck: Supple, no meningeal sign, No bony TTP - Cardiac Cardiac: RRR, No murmur - Respiratory Respiratory: No respiratory distress - Abdomen Abdomen: Normal bowel sounds, Soft - Back Back: No CVA TTP Results - Vitals Vitals: Vital Signs - 24 hr 12/18/19 16:48 Temperature 36.8 C Heart Rate 69 Respiratory 16 Rate Blood Pressure 143/58 H O2 Saturation 99 Oxygen O2 Source Room air PD MEDICAL DECISION MAKING - ED course Complexity details: reviewed results ED course: 39-year-old male presents to the emergency department for 1 week of right upper molar pain. He has obvious dental decay and some gumline fluctuance but no trismus or fevers. At this time I will prescribe him some clindamycin and recommend very close follow-up with dentistry. Also a limited number of [place] will be prescribed for pain. Departure - Departure Disposition: 01 Home, Self Care Clinical Impression: Dental decay, Tooth abscess Condition: Stable Record reviewed to determine appropriate education?: Yes Instructions: ED Abscess Dental Prescriptions: Clindamycin HCl [Clindamycin 300MG CAP] 300 mg PO Q6H #28 capsule Hydrocodone/Acetaminophen [[place] 5-325 Tablet] 1 each PO BID PRN #10 tablet PRN Reason: Pain Comments: Jewel I have prescribed you some antibiotics. Please begin taking as directed. I have also prescribed a limited number of [place] to help with pain. In the long-term this pain will not get better until you see a dentist. Please schedule an appointment with 1 as soon as possible. There are some clinics in the [facility] that do offer dental walk-in appointments if you arrive early in the a.m. That might be one option for prompt dental care If you have fevers, cannot open your mouth fully, have facial swelling please return to the emergency department
== END 2019-12-18 19:17 | disposition home or self-care (01) ==
LOC: ED 16:34
DX: K04.7 Periapical abscess without sinus (principal); K02.9 Dental caries, unspecified
CPT/HCPCS: 99282; 99284

== ENCOUNTER 2020-03-24 09:22 | Emergency (ER) | payer MEDICARE ==
--- NOTE | 2020-03-24 09:44 | ED Physician Documentation ---
PD HPI Fall - Stated complaint Stated Complaint: BACK PX - Chief complaint Chief Complaint: Back Pain - History obtained from History obtained from: Patient - History of Present Illness Mechanism of injury: Lost balance (he was about 10 feet up on ladder and reached too far, ladder tipped and he fell down onto back on flat area. Pain lower thoracic spine and ribs area.) Fall distance: 5 to 10ft Where injury occurred: Home Timing - onset: Yesterday Injury(ies) location: Back (mid to lower thoracic area) Quality of pain: Aching, Sharp Associated symptoms: No: LOC, AMS, Neck pain, Weakness, Paresthesias, Abdominal distension Symptoms improve with: Rest. No: Meds (Ibuprofen without improvement) Worsens with: Movement Similar symptoms before: Has not had sx before Recently seen: Not recently seen (semi-frequent ER visits for various pain related problems. A few times each year.) Review of Systems Constitutional: reports: Myalgias (states sore all over from the fall). denies: Fever, Chills Cardiac: denies: Chest pain / pressure GI: denies: Abdominal Pain Skin: denies: Abrasion (s), Laceration (s) Musculoskeletal: reports: Back pain. denies: Neck pain, Extremity pain Neurologic: denies: Focal weakness, Numbness, Headache, Head injury PD PAST MEDICAL HISTORY - Past Medical History Past Medical History: Yes Cardiovascular: None Respiratory: None Neuro: None Endocrine/Autoimmune: None GI: None : None HEENT: None Psych: Depression Musculoskeletal: None Derm: None - Past Surgical History Past Surgical History: Yes Ortho: Other - Present Medications Home Medications: Ambulatory Orders Medication Instructions Recorded Confirmed Citalopram [CeleXA] 20 mg PO DAILY 10/07/17 07/18/18 ALPRAZolam [Alprazolam] 0.25 mg PO 06/30/19 Neomycin/Polymyx/Hc Otic Drops 4 drops LEFTEAR TID #1 bottle 06/30/19 [Cortisporin Ear Susp] Oxycodone HCl/Acetaminophen 1 - 2 each PO Q6H PRN #8 tablet 06/30/19 [Percocet 5-325 mg Tablet] Erythromycin Base [Erythromycin] 500 mg PO TID #30 tablet. 09/23/19 Ofloxacin 5 drops RIGHTEAR BID #1 bot 09/23/19 Oxycodone HCl/Acetaminophen 1 - 2 each PO Q6H PRN #10 tablet 09/23/19 [Percocet 5-325 mg Tablet] Clindamycin HCl [Clindamycin 300MG 300 mg PO Q6H #28 capsule 12/18/19 CAP] Hydrocodone/Acetaminophen [[place] 1 each PO BID PRN #10 tablet 12/18/19 5-325 Tablet] Naproxen [EC-Naproxen] 500 mg PO BID #15 tablet. 03/24/20 Oxycodone HCl/Acetaminophen 1 each PO Q8H PRN #15 tablet 03/24/20 [Percocet 7.5-325 mg Tablet] tiZANidine [Zanaflex] 4 mg PO Q8H PRN #25 tablet 03/24/20 - Allergies Allergies/Adverse Reactions: Allergies Allergy/AdvReac Type Severity Reaction Status Date / Time amoxicillin [Amoxicillin] Allergy Severe Hives Verified 03/24/20 09:33 Penicillins Allergy Hives Verified 03/24/20 09:33 hydrocodone [Hydrocodone] AdvReac Headache Verified 03/24/20 09:33 tramadol AdvReac Headache Verified 03/24/20 09:33 - Social History Does the pt smoke?: No Smoking Status: Never smoker Does the pt drink ETOH?: No Does the pt have substance abuse?: No - Immunizations Immunizations are current?: Yes - POLST Patient has POLST: No PD ED PE NORMAL - Vitals Vital signs reviewed: Yes - General General: Alert and oriented X 3, Well developed/nourished, Other (appears in pain and guarding motion of the low back) - HEENT HEENT: Atraumatic - Neck Neck: Supple, no meningeal sign, No bony TTP - Cardiac Cardiac: RRR, No murmur - Respiratory Respiratory: Clear bilaterally - Abdomen Abdomen: Soft, Non tender - Back Back: No CVA TTP, Other (He is tender in the mid to lower thoracic area midline and also in the lateral lower ribs and chest wall in the mid scapular lines. No obvious abrasions. No crepitance nor subcutaneous emphysema felt.) - Derm Derm: Normal color, Warm and dry - Extremities Extremities: Normal ROM s pain - Neuro Neuro: Alert and oriented X 3, No motor deficit, No sensory deficit, Normal speech Results - Vitals Vitals: Vital Signs - 24 hr 03/24/20 03/24/20 09:26 11:51 Temperature 36.5 C 36.6 C Heart Rate 95 80 Respiratory 14 19 Rate Blood Pressure 113/75 124/84 H O2 Saturation 100 99 Oxygen O2 Source Room air - Rads (name of study) chest CT Radiology: Prelim report reviewed (no lung injury nor visible fractures.), See rad report PD MEDICAL DECISION MAKING - ED course Complexity details: reviewed old records (no KATALINA reported?), considered differential (fell about 10 feet onto back. He does have reasonably frequent visits for pain meds but not really apparent drug misuser, I think just poor pain tolerance/issues. ), d/w patient Departure - Departure Disposition: 01 Home, Self Care Clinical Impression: Fall from ladder Qualifiers: Encounter type: initial encounter Qualified Code(s): W11.XXXA - Fall on and from ladder, initial encounter Acute thoracic back pain Qualifiers: Back pain laterality: bilateral Qualified Code(s): M54.6 - Pain in thoracic spine Back contusion Qualifiers: Encounter type: initial encounter Laterality: unspecified laterality Qualified Code(s): S20.229A - Contusion of unspecified back wall of thorax, initial encounter Condition: Stable Record reviewed to determine appropriate education?: Yes Instructions: ED Contusion Back Follow-Up: Tima Durant MD [Primary Care Provider] - Prescriptions: Naproxen [EC-Naproxen] 500 mg PO BID #15 tablet. Oxycodone HCl/Acetaminophen [Percocet 7.5-325 mg Tablet] 1 each PO Q8H PRN #15 tablet PRN Reason: Pain tiZANidine [Zanaflex] 4 mg PO Q8H PRN #25 tablet PRN Reason: Spasms Comments: Your CT scan did not show any fractures of the spines or ribs nor any obvious organ injury of the lung. You will still be sore from the fall for likely several days to a week or so. Use some anti-inflammatory such as naproxen twice daily with food. To that add Tylenol or oxycodone if needed for pain. Tizanidine for muscle spasms. I would anticipate improvement over the next several days to week. Heat and gentle stretching. Avoid lifting and vigorous activity until better. Discharge Date/Time: 03/24/20 11:55
[2020-03-24] MEDS ORDERED: KETOROLAC 30 MG/ML VIAL IM STA (09:55)
[2020-03-24] MEDS ORDERED: oxyCODONE 5 MG TABLET PO STA (09:55)
--- NOTE | 2020-03-24 10:53 | CT Report ---
PROCEDURE: CHEST WO INDICATIONS: Fall from ladder; lower thoracic spine and rib pain TECHNIQUE: Noncontrast 5 mm thick sections acquired from the pulmonary apices to the posterior costophrenic angl es. 7 mm thick coronal and sagittal MIP reformats were then acquired. For radiation dose reduction, the following was used: automated exposure control, adjustment of mA and/or kV according to patient size. COMPARISON: None FINDINGS: Image quality: Excellent. Lungs and pleura: No acute air space opacities. No pleural effusions or pneumothorax. Central and peripheral airways are patent and normal in caliber. Mediastinum: Heart size is normal. No pericardial effusion. No mediastinal adenopathy by size crit eria. Thoracic aorta and central pulmonary arteries are normal in size. Esophagus is normal in jessica marely. No hiatal hernia. Bones and chest wall: No suspicious bony lesions. No vertebral body compression fractures. No axil zain or supraclavicular adenopathy by size criteria. Partially visualized thyroid is unremarkable. Abdomen: Visualized upper abdominal solid organs and bowel loops appear normal in the absence of con trast. IMPRESSION: No acute traumatic finding in the chest. Reviewed by: Jewel Whiting MD on 03/24/2020 10:51 AM PST Approved by: Jewel Whiting MD on 03/24/2020 10:51 AM PST Station ID: [id number]
[2020-03-24] MEDS ORDERED: methocarbamoL 500 MG TABLET PO STA (11:29)
[2020-03-24] MEDS ORDERED: HYDROmorphone 2 MG/ML VIAL IM STA (11:29)
[2020-03-24] MEDS ORDERED: ACETAMINOPHEN 325 MG TABLET PO STA (11:29)
[2020-03-24 11:52] VITALS: BP 124/84
== END 2020-03-24 11:55 | disposition home or self-care (01) ==
LOC: ED 09:22
DX: S20.229A Contusion of unspecified back wall of thorax, initial encounter (principal); R07.81 Pleurodynia; W11.XXXA Fall on and from ladder, initial encounter; Y92.009 Unspecified place in unspecified non-institutional (private) residence as the place of occurrence of the external cause
CPT/HCPCS: 71250; 96372; 99284; A9270; J1170

== ENCOUNTER 2020-10-13 09:31 | Emergency (ER) | payer MEDICARE ==
--- NOTE | 2020-10-13 09:45 | ED Physician Documentation ---
PD HPI HEENT - Stated complaint Stated Complaint: TOOTH PX - History obtained from History obtained from: Patient - History of Present Illness Timing - onset: Yesterday Timing - details: Abrupt onset (he was chewing firm food and right upper molar broke (had decay and filling previously) and is hurting a lot now.) Location: Tooth Associated symptoms: No: Fever, Congestion Similar symptoms before: Diagnosis (poor dentition so prior dental pains and infections. "I hate dentists" he says and "need to be sedated for it, so hard to find a dentist".) Review of Systems Constitutional: denies: Fever, Chills Nose: denies: Rhinorrhea / runny nose, Congestion Throat: denies: Sore throat Respiratory: denies: Cough PD PAST MEDICAL HISTORY - Past Medical History Cardiovascular: None Respiratory: None Neuro: None Endocrine/Autoimmune: None GI: None : None HEENT: None Psych: Depression Musculoskeletal: None Derm: None - Past Surgical History Past Surgical History: Yes Ortho: Other - Present Medications Home Medications: Ambulatory Orders Medication Instructions Recorded Confirmed Citalopram [CeleXA] 20 mg PO DAILY 10/07/17 07/18/18 ALPRAZolam [Alprazolam] 0.25 mg PO 06/30/19 Neomycin/Polymyx/Hc Otic Drops 4 drops LEFTEAR TID #1 bottle 06/30/19 [Cortisporin Ear Susp] Oxycodone HCl/Acetaminophen 1 - 2 each PO Q6H PRN #8 tablet 06/30/19 [Percocet 5-325 mg Tablet] Erythromycin Base [Erythromycin] 500 mg PO TID #30 tablet. 09/23/19 Ofloxacin 5 drops RIGHTEAR BID #1 bot 09/23/19 Oxycodone HCl/Acetaminophen 1 - 2 each PO Q6H PRN #10 tablet 09/23/19 [Percocet 5-325 mg Tablet] Clindamycin HCl [Clindamycin 300MG 300 mg PO Q6H #28 capsule 12/18/19 CAP] Hydrocodone/Acetaminophen [[place] 1 each PO BID PRN #10 tablet 12/18/19 5-325 Tablet] Naproxen [EC-Naproxen] 500 mg PO BID #15 tablet. 03/24/20 Oxycodone HCl/Acetaminophen 1 each PO Q8H PRN #15 tablet 03/24/20 [Percocet 7.5-325 mg Tablet] tiZANidine [Zanaflex] 4 mg PO Q8H PRN #25 tablet 03/24/20 Clindamycin [Cleocin] 150 mg PO TID 5 Days #15 cap 10/13/20 Ibuprofen [Motrin] 600 mg PO TID PRN #25 tab 10/13/20 Lidocaine Viscous 2% [Xylocaine 2 ml TOP Q4H PRN #50 ml 10/13/20 Viscous 2%] Oxycodone HCl/Acetaminophen 1 each PO Q6H PRN #15 tablet 10/13/20 [Percocet 5-325 mg Tablet] - Allergies Allergies/Adverse Reactions: Allergies Allergy/AdvReac Type Severity Reaction Status Date / Time amoxicillin [Amoxicillin] Allergy Severe Hives Verified 10/13/20 09:46 Penicillins Allergy Hives Verified 10/13/20 09:46 hydrocodone [Hydrocodone] AdvReac Headache Verified 10/13/20 09:46 tramadol AdvReac Headache Verified 10/13/20 09:46 - Social History Does the pt smoke?: No Smoking Status: Never smoker Does the pt drink ETOH?: No Does the pt have substance abuse?: No - Immunizations Immunizations are current?: Yes - POLST Patient has POLST: No PD ED PE NORMAL - Vitals Vital signs reviewed: Yes - General General: Alert and oriented X 3, Well developed/nourished, Other (appears in pain) - HEENT HEENT: No: Dentition benign (poor dentitis. Right upper molar with decay to gumline mostly, but small anterior shell of enamel. Not enough to hold temp filling. Some redness and swelling of gum. No fluctuance nor discharge. ) - Neck Neck: Supple, no meningeal sign, No adenopathy - Derm Derm: Normal color, Warm and dry Results - Vitals Vitals: Vital Signs - 24 hr 10/13/20 09:42 Temperature 36.9 C Heart Rate 107 H Respiratory 20 Rate Blood Pressure 144/79 H O2 Saturation 100 Oxygen O2 Source Room air PD MEDICAL DECISION MAKING - ED course Complexity details: reviewed old records, considered differential (episodic ER visits and had not had one since 2019. Seems poor pain tolerance and doesn't like dentists. No KATALINA. Short term pain meds seem reasonable. ), d/w patient ED course: I am prescribing a short course of short acting opioid pain medicine for this patient. I reviewed the patient's [employer] and no concerning findings were noted. I have discussed that the opioids are for short-term therapy only, and will not be refilled from the ED. Departure - Departure Disposition: 01 Home, Self Care Clinical Impression: Dental caries Broken tooth Qualifiers: Encounter type: initial encounter Fracture type: open Qualified Code(s): S02.5X XB - Fracture of tooth (traumatic), initial encounter for open fracture Condition: Stable Record reviewed to determine appropriate education?: Yes Follow-Up: Tima Durant MD [Primary Care Provider] - Prescriptions: Clindamycin [Cleocin] 150 mg PO TID 5 Days #15 cap Ibuprofen [Motrin] 600 mg PO TID PRN #25 tab PRN Reason: Pain Oxycodone HCl/Acetaminophen [Percocet 5-325 mg Tablet] 1 each PO Q6H PRN #15 tablet PRN Reason: pain Lidocaine Viscous 2% [Xylocaine Viscous 2%] 2 ml TOP Q4H PRN #50 ml PRN Reason: Pain Comments: Apply lidocaine topically to the broken tooth area to help with the pain discomfort. Ibuprofen 3 times a day with food. Clindamycin also with food which is an antibiotic for concern of mild infection. Add Tylenol 500 mg 4 times a day or oxycodone if needed for worse pain. This will need dental care for definitive treatment. Follow-up with the dentist at their next available appointment. [facility] is a possibility. I am prescribing a short course of narcotic pain medication for you. These are potentially dangerous and addictive medications that should be used carefully. These medications may constipate you. Take an baoz-tff-stkssod stool softener such as docusate twice daily with plenty of water while taking these medi cations. If you go 24 hours without a bowel movement, take sdri-[id number]-[id number] MiraLAX, per package instructions. Do not drink or drive while taking these medications. If you received narcotic or sedating medications while in the emergency department do not drive for 24 hours. Store this medication in a safe, secure place and out of reach of children. It is a violation of federal law to give or sell this medication to another person or to use in a manner other than prescribed. The ED will not refill narcotic prescriptions, including prescriptions lost or stolen. You can dispose of unwanted medications at the [facility]'s office or at several pharmacies such as [facility]. Discharge Date/Time: 10/13/20 10:22
[2020-10-13 09:46] VITALS: BP 144/79
[2020-10-13] MEDS ORDERED: LIDOCAINE VISCOUS 2% 15 ML UDC MM STA (10:04)
[2020-10-13] MEDS ORDERED: IBUPROFEN 600 MG TABLET PO STA (10:04)
[2020-10-13] MEDS ORDERED: oxyCODONE 5 MG TABLET PO STA (10:04)
[2020-10-13] MEDS ORDERED: CLINDAMYCIN 150 MG CAPSULE PO STA (10:05)
== END 2020-10-13 10:22 | disposition home or self-care (01) ==
LOC: ED 09:31
DX: S02.5XXB Fracture of tooth (traumatic), initial encounter for open fracture (principal); X58.XXXA Exposure to other specified factors, initial encounter; Y93.89 Activity, other specified; K02.9 Dental caries, unspecified; Z88.0 Allergy status to penicillin
CPT/HCPCS: 99283; 99284; A9270

== ENCOUNTER 2021-03-16 09:37 | Emergency (ER) | payer MEDICARE ==
--- NOTE | 2021-03-16 11:09 | ED Physician Documentation ---
PD HPI HEENT - Stated complaint Stated Complaint: R SIDE EAR PX - Chief complaint Chief Complaint: Heent - Additional information Additional information: With right ear pain. Endorses for right ear pain and discharge x1 day. Reports that he gets frequent ear infections. Denies smoking, swimming in communal pools, or foreign body instrumentation to the ear. Denies fever, chills, neck stiffness, headache, blurred vision, double vision, chest pain, shortness of breath, abdominal pain, nausea,, diarrhea, constipation. Review of Systems Ten Systems: 10 systems reviewed and negative Constitutional: denies: Fever Eyes: denies: Loss of vision Ears: reports: Ear pain Throat: reports: Other. denies: Dental pain / toothache, Oral lesions / sores Cardiac: denies: Chest pain / pressure Respiratory: denies: Dyspnea GI: denies: Abdominal Pain, Nausea, Vomiting PD PAST MEDICAL HISTORY - Past Medical History Past Medical History: Yes Cardiovascular: None Respiratory: None Neuro: None Endocrine/Autoimmune: None GI: None : None HEENT: None Psych: Depression Musculoskeletal: None Derm: None - Past Surgical History Past Surgical History: Yes Ortho: Other - Present Medications Home Medications: Ambulatory Orders Medication Instructions Recorded Confirmed Citalopram [CeleXA] 20 mg PO DAILY 10/07/17 03/16/21 Neomyc/Colist/Hydrocort/Thonzn 10 ml OT TID #1 drops 03/16/21 [Cortisporin-Tc Ear Suspension] clindamycin HCL [Cleocin HCl] 450 mg PO TID 7 Days #21 cap 03/16/21 - Allergies Allergies/Adverse Reactions: Allergies Allergy/AdvReac Type Severity Reaction Status Date / Time amoxicillin [Amoxicillin] Allergy Severe Hives Verified 03/16/21 09:45 Penicillins Allergy Hives Verified 03/16/21 09:45 hydrocodone [Hydrocodone] AdvReac Headache Verified 03/16/21 09:45 tramadol AdvReac Headache Verified 03/16/21 09:45 - Social History Does the pt smoke?: No Smoking Status: Never smoker Does the pt drink ETOH?: No Does the pt have substance abuse?: No - Immunizations Immunizations are current?: Yes - POLST Patient has POLST: No PD ED PE NORMAL - Vitals Vital signs reviewed: Yes - General General: Alert and oriented X 3 - Neck Neck: Supple, no meningeal sign - Cardiac Cardiac: RRR, No gallop, No rub - Respiratory Respiratory: No respiratory distress - Abdomen Abdomen: Normal bowel sounds - Male Male : Deferred - Rectal Rectal: Deferred PD ED PE EXPANDED - HEENT HEENT: Atraumatic, Head injury, PERRL, R TM red, R TM bulging (Right-sided otitis externa) Results - Vitals Vitals: Vital Signs - 24 hr 03/16/21 09:43 Temperature 36.6 C Heart Rate 95 Respiratory 16 Rate Blood Pressure 120/74 O2 Saturation 100 Oxygen O2 Source Room air PD MEDICAL DECISION MAKING - ED course Complexity details: re-evaluated patient, d/w patient ED course: Patient is a 41-year-old male presenting with right-sided ear pain x1 day. Endorse for history of multiple chronic ear infections. Afebrile, hemodynamically stable on arrival to the emergency department. Did have erythema in the posterior auditory canal as well as some erythema without significant bulge to the right tympanic membrane. Patient is allergic to penicillins and amoxicillin. Will cover with course of clindamycin as well as ciprofloxacin/hydrocortisone drops. Encourage careful follow-up with primary care or return to the emergency department for new or worsening symptoms. Departure - Departure Clinical Impression: Otitis media, Otitis externa Condition: Good Instructions: ED Otitis Media Serous Adult, ED Otitis Externa Ch Prescriptions: clindamycin HCL [Cleocin HCl] 450 mg PO TID 7 Days #21 cap Neomyc/Colist/Hydrocort/Thonzn [Cortisporin-Tc Ear Suspension] 10 ml OT TID #1 drops
[2021-03-16] MEDS: CLINDAMYCIN 150 MG CAPSULE PO STA (11:16)
[2021-03-16] MEDS: IBUPROFEN 600 MG TABLET PO STA (11:16)
[2021-03-16 11:24] VITALS: BP 104/60
== END 2021-03-16 11:41 | disposition home or self-care (01) ==
LOC: ED 09:37
DX: H66.91 Otitis media, unspecified, right ear (principal)
CPT/HCPCS: 99282; 99283; A9270

== ENCOUNTER 2022-03-12 08:48 | Emergency (ER) | payer MEDICARE ==
[2022-03-12 08:57] VITALS: BP 142/78
--- NOTE | 2022-03-12 09:03 | ED Physician Documentation ---
PD HPI HEENT - Stated complaint Stated Complaint: TOOTHACHE - Chief complaint Chief Complaint: Heent - History obtained from History obtained from: Patient - History of Present Illness Timing - onset: How many days ago (several) Timing - duration: Days (several) Timing - details: Gradual onset, Still present Location: Tooth (right upper tooth that is broken to gumline had gotten painful and with gum swelling.) Worsens: Temperatures, Other (chewing) Associated symptoms: No: Fever, Swollen nodes, Facial swelling Similar symptoms before: Diagnosis (has had dental infections in the past.) Recently seen: Not recently seen (he called dental clinic but they did not have appts for 2 weeks.) Review of Systems Constitutional: denies: Fever, Chills Nose: denies: Rhinorrhea / runny nose, Congestion Throat: reports: Dental pain / toothache. denies: Sore throat Respiratory: denies: Cough Skin: denies: Rash Neurologic: denies: Headache PD PAST MEDICAL HISTORY - Past Medical History Past Medical History: Yes Cardiovascular: None Respiratory: None Neuro: None Endocrine/Autoimmune: None GI: None : None HEENT: None Psych: Depression Musculoskeletal: None Derm: None - Past Surgical History Past Surgical History: Yes Ortho: Other - Present Medications Home Medications: Ambulatory Orders Medication Instructions Recorded Confirmed Citalopram [CeleXA] 20 mg PO DAILY 10/07/17 03/16/21 Neomyc/Colist/Hydrocort/Thonzn 10 ml OT TID #1 drops 03/16/21 [Cortisporin-Tc Ear Suspension] clindamycin HCL [Cleocin HCl] 450 mg PO TID 7 Days #21 cap 03/16/21 Chlorhexidine Gluconate [Peridex] 15 ml MM TID #118 ml 03/12/22 Naproxen 500 mg PO BID #20 tab 03/12/22 Oxycodone HCl/Acetaminophen 1 each PO Q6H PRN #18 tablet 03/12/22 [Percocet 5-325 mg Tablet] clindamycin HCL [Clindamycin HCl] 300 mg PO TID 7 Days #20 cap 03/12/22 - Allergies Allergies/Adverse Reactions: Allergies Allergy/AdvReac Type Severity Reaction Status Date / Time amoxicillin [Amoxicillin] Allergy Severe Hives Verified 03/12/22 08:57 Penicillins Allergy Hives Verified 11/18/22 08:57 hydrocodone [Hydrocodone] AdvReac Headache Verified 03/12/22 08:57 tramadol AdvReac Headache Verified 03/12/22 08:57 - Social History Does the pt smoke?: No Smoking Status: Never smoker Does the pt drink ETOH?: No Does the pt have substance abuse?: No - Immunizations Immunizations are current?: Yes - POLST Patient has POLST: No PD ED PE NORMAL - Vitals Vital signs reviewed: Yes - General General: Alert and oriented X 3, No acute distress, Well developed/nourished - HEENT HEENT: No: Dentition benign (multiple caries. Hes right upper premolar with caries and tooth broken to gumline. there is swelling and redness of the gum around, but no fluctuance. ) - Neck Neck: Supple, no meningeal sign, No adenopathy Results - Vitals Vitals: Vital Signs - 24 hr 03/12/22 08:55 Temperature 36.8 C Heart Rate 101 H Respiratory 16 Rate Blood Pressure 142/78 H O2 Saturation 100 Oxygen O2 Source Room air PD MEDICAL DECISION MAKING - ED course Complexity details: reviewed old records (KATALINA shows alprazolam. No recent opioids. Last ER visit was over a year ago. ), considered differential, d/w patient Departure - Departure Disposition: 01 Home, Self Care Clinical Impression: Pain due to dental caries, Infected dental caries Condition: Stable Record reviewed to determine appropriate education?: Yes Prescriptions: clindamycin HCL [Clindamycin HCl] 300 mg PO TID 7 Days #20 cap Naproxen 500 mg PO BID #20 tab Oxycodone HCl/Acetaminophen [Percocet 5-325 mg Tablet] 1 each PO Q6H PRN #18 tablet PRN Reason: pain Chlorhexidine Gluconate [Peridex] 15 ml MM TID #118 ml Comments: Clindamycin antibiotic 3 times daily for a week as directed. Also use chlorhexidine antiseptic mouth rinse twice daily to help with infection along the tooth socket. Naproxen anti-inflammatory twice daily with food as directed. To that add Tylenol every 4-6 hours if needed for pain or oxycodone/acetaminophen if needed for worse pain. Follow-up with the oral surgeon in 2 weeks in [place] as planned. I sent your prescriptions to [facility] in [place]. I am prescribing a short course of narcotic pain medication for you. These are potentially dangerous and addictive medications that should be used carefully. These medications may constipate you. Take an ptno-cuq-gkuexdu stool softener such as docusate twice daily with plenty of water while taking these medications. If you go 24 hours without a bowel movement, take [id number] MiraLAX, per package instructions. Do not drink or drive while taking these medications. If you received narcotic or sedating medications while in the emergency department do not drive for 24 hours. Store this medication in a safe, secure place and out of reach of children. It is a violation of federal law to give or sell this medication to another person or to use in a manner other than prescribed. The ED will not refill narcotic prescriptions, including prescriptions lost or stolen. You can dispose of unwanted medications at the [facility]'s office or at several pharmacies such as [facility]. Discharge Date/Time: 03/12/22 09:24
[2022-03-12] MEDS ORDERED: NAPROXEN 250 MG TABLET PO STA (09:13)
[2022-03-12] MEDS ORDERED: oxyCODONE 5 MG TABLET PO STA (09:13)
[2022-03-12] MEDS ORDERED: CLINDAMYCIN 150 MG CAPSULE PO STA (09:13)
== END 2022-03-12 09:24 | disposition home or self-care (01) ==
LOC: ED 08:48
DX: K04.7 Periapical abscess without sinus (principal); K02.9 Dental caries, unspecified
CPT/HCPCS: 99282; 99284; A9270